=== PATIENT | female | born 1965 | race African-American/Black ===

== ENCOUNTER 2019-05-10 15:51 | Inpatient (IN) | payer MEDICARE ==
[~2019-05-10 15:51] MED LIST: Gadobenate Dimeglumine 529 MG/1 ML (20ML VIAL) ONE
[2019-05-10 17:12] LABS: #Lymphocytes 1.1 thou/uL (1.20-3.40); #Monocytes 0.3 thou/uL (0.11-0.59); %Basophils 0.3 % (0.0-1.0); %Eosinophils 0.8 % (0.0-10.0); %Lymphocytes 24.8 % (21.0-51.0); %Monocytes 7.1 % (0.0-10.0); Hemoglobin 11.3 g/dL (12.0-16.0); Mean Corpuscular HGB CONC 32.7 g/dL (32.0-36.0); Mean Corpuscular Hemoglobin 30.2 pg (27.0-31.0); Mean Corpuscular Volume 92.3 fL (78.0-98.0); Platelet Count 233 thou/uL (130-400); RBC Distribution Width 12.4 % (11.5-14.5); Red Blood Cell (RBC) Count 3.73 mill/uL (4.20-5.40); White Blood Cell (WBC) Count 4.4 thou/uL (4.8-10.8)
--- NOTE | 2019-05-10 17:12 | CT ---
CT LUMBAR SPINE: 05/10/19 HISTORY: Low back pain, right leg pain, sciatic pain. FINDINGS: The lumbar vertebrae maintain height. There is a grade I anterolisthesis at L4-5. There is loss of di sc space with degenerative disc changes including vacuum phenomenon at L5-S1. Degenerative osteophyt es are seen at L5 and S1 levels. No evidence of spondylolysis although prominent facet hypertrophy at L4-5 and L5-S1. Findings at each level are described. At L1-2, no disc bulge or protrusion. No central canal or foraminal stenosis. At L2-3, mild disc bulge. Mild facet hypertrophy. No central canal or foraminal stenosis. At L3-4, mild diffuse disc bulge. Moderate facet hypertrophy. Mild central canal stenosis. At L4-5, grade I anterolisthesis as noted above. Broad based disc bulge. Prominent facet hypertrophy with facet arthrosis. These changes result in severe central canal stenosis at this level. Bilateral foraminal stenosis. At L5-S1, mild diffuse disc bulge. There is mild central canal stenosis. There is a diffuse disc bulg e impinges on both traversing S1 nerve roots. Bilateral foraminal stenosis is noted. IMPRESSION: 1. Severe central canal and foraminal stenosis at L4-5 as described. 2. Bilateral foraminal stenosis at L5-S1 as described. POS: T[facility]
[2019-05-10] MEDS ORDERED: Morphine 4 MG/ML VIAL ONE ×2 (17:19→18:42)
[2019-05-10 17:36] LABS: ALT (SGPT) 27 U/L (8-55); AST (SGOT) 27 U/L (5-34); Albumin 3.8 g/dL (3.5-5.0); Alkaline Phosphatase 67 U/L (40-110); Anion Gap 11 mmol/L (10-20); BUN (Urea Nitrogen) 13 mg/dL (9.8-20.1); Bilirubin, Total 0.5 mg/dL (0.2-1.2); Calc. Creatinine Clearance 0 mL/min (70-130); Carbon Dioxide 22 mmol/L (22-29); Chloride 107 mmol/L (98-107); Estimated GFR-MDRD 90; Globulin 4.1 g/dL (2.4-3.5); Glucose 95 mg/dL (70-105); Protein, Total 7.9 g/dL (6.0-8.3); Sodium 136 mmol/L (136-145)
[2019-05-10] MEDS ORDERED: Lorazepam 2 MG/ML VIAL ONE (19:50)
[2019-05-10 20:51] LABS: Bilirubin Negative (Negative); Blood, Urine Negative (Negative); Clarity Clear (Clear); Glucose, Urine (Dipstick) Normal (Negative); Leukocyte Negative Leu/uL (Negative); Nitrite Negative (Negative); Protein, Urine (Dipstick) Negative (Neg-Trace); Urobilinogen Normal mg/dL (Less than 2)
--- NOTE | 2019-05-10 21:57 | MRI ---
MRI LUMBAR SPINE WITH AND WITHOUT IV CONTRAST: 05/10/19 HISTORY: Low back pain and right leg pain. COMPARISON: CT lumbar spine on 05/10/19. There is significant motion artifact on all pulses sequences which does degrade image quality. The conus medullaris is grossly normal in appearance and terminates at the level of the L1 vertebral body. As noted on the CT of the lumbar spine, there are degenerative changes in the lower lumbar spine with grade I anterolisthesis of L4 on L5. L1-2 level: No significant central canal or neural foraminal narrowing. L2-3 level: No significant central canal or neural foraminal narrowing. L3-4 level: Minimal disc bulge with facet hypertrophic changes. This results in mild right sided neur al foraminal narrowing. The left neural foramen is patent. There is no significant central canal ruel rowing. L4-5 level: Grade I anterolisthesis is present as noted above. There is a broad based disc osteophyte complex at this level with prominent facet hypertrophic changes. As noted on the CT scan examination , there is severe central canal narrowing with moderate to severe right sided neural foraminal narrow ing and mild left sided neural foraminal narrowing. L5-S1 level: There is severe loss of intervertebral disc height. End plate degenerative changes are p resent. There is disc osteophyte complex and facet hypertrophic changes noted. There is no significan t central canal narrowing at this level. There is moderate right and mild left sided neural foraminal narrowing. Paravertebral soft tissues are within normal limits. There is minimal enhancement adjacent to the facet joints at the L4-5 level likely related to inflamm atory changes due to prominent fact hypertrophic changes. No additional areas of abnormal enhancement are seen after the administration of intravenous contrast. IMPRESSION: 1. Grade I anterolisthesis of L4 on L5 with severe central canal narrowing as well as severe rig ht and moderate left sided neural foraminal narrowing. 2. Prominent disc degenerative changes at the L5-S1 level with evidence of bilateral neural fora mandy narrowing. POS: ZABRINA
[2019-05-10] MEDS ORDERED: methylPREDNISolone Sod Succ/PF 125 MG/2 ML VIAL ONE (23:51)
[2019-05-10 23:55] LABS: Magnesium 2.2 mg/dL (1.6-2.6); Phosphorus 3.2 mg/dL (2.3-4.7)
[2019-05-11 01:51] VITALS: BMI 31.3
[2019-05-11] MEDS ORDERED: Acetaminophen 325 MG TAB PO PRN (02:23)
[2019-05-11] MEDS ORDERED: Ondansetron PF 4 MG/2 ML Vial IVP PRN (02:23)
[2019-05-11] MEDS ORDERED: Ondansetron ODT 4 MG TAB PO PRN (02:23)
[2019-05-11] MEDS ORDERED: Calcium Carbonate 500 MG ChewTAB PO PRN (02:23)
[2019-05-11] MEDS ORDERED: Morphine 2 MG/ML SYRINGE SLOW IVP PRN (02:28)
--- NOTE | 2019-05-11 02:45 | HP ---
PRIMARY CARE PHYSICIAN: Tal Urias MD CHIEF COMPLAINT: Low back pain. HISTORY OF PRESENT ILLNESS: The patient is a 53-year-old female, with systemic lupus erythematosus, fibromyalgia, osteoporosis, and degenerative joint disease, presented to the emergency room with above complaints. Over the last 3 days, the patient has worsening low back pain. 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 The pain is radiating to her right leg. She is unable to bear weight due to this reason. She also has significant paresthesias especially over the anterior right leg that started today. She denies any bladder or bowel incontinence. No fever or chills reported. The pain is 10/10, constant, worse with ambulation or any kind of movement. She denies any relieving factor. PAST MEDICAL HISTORY: 1. Systemic lupus erythematosus. 2. Osteoporosis. 3. Fibromyalgia. 4. Degenerative joint disease. 5. Hypertension. PAST SURGICAL HISTORY: 1. Cholecystectomy. 2. Gastric bypass in 2010. ALLERGIES: NO KNOWN DRUG ALLERGIES. CURRENT MEDICATIONS: Per ER note, the patient takes 1. Losartan 50 mg b.i.d. 2. Hydrochlorothiazide 12.5 mg daily. 3. Potassium chloride 20 mEq daily. 4. Prednisone 5 mg every other day. 5. Hydroxychloroquine 400 mg daily. 6. Gabapentin as directed. 7. Methotrexate every week. 8. Tramadol as needed. Medications need to be verified. SOCIAL HISTORY: The patient currently lives at home with her family. No current use of tobacco, alcohol, or drug use. FAMILY HISTORY: Negative for premature coronary artery disease. REVIEW OF SYSTEMS: All other review of systems was reviewed and was found negative. PHYSICAL EXAMINATION: VITAL SIGNS: Temperature 98.2, respirations of 18, pulse rate of 63, blood pressure of 139/94 on admission. Her pulse rate was 110 on admission. O2 saturation 99% on room air. GENERAL: A 53-year-old female, in mild distress due to back pain. HEENT: Head, atraumatic and normocephalic. Sclerae are anicteric. Moist mucous membranes. No oral lesion. NECK: Supple. No JVD appreciated. No carotid bruit. LUNGS: Clear to auscultation bilaterally. No wheezing, rales, or rhonchi. HEART: S1 and S2 present. Regular rate and rhythm. No rubs or gallops appreciated. ABDOMEN: Soft, nontender. Bowel sounds are present. No rebound or guarding. EXTREMITIES: No edema or calf tenderness. NEUROLOGY: Cranial nerves 2 through 12 are normal on examination. Power is 5/5 in bilateral upper extremities. The power is 4/5 in the right lower extremities. Sensation is diminished over the anterior right leg. There is pain on palpation over the right SI joint. Leg raising on the right elicited the back pain. PSYCHIATRY: Alert, awake, oriented x3. SKIN: Warm and dry. LYMPH NODES: No palpable lymph nodes in the neck. PERIPHERAL VASCULAR: Radial pulses palpable bilaterally. MUSCULOSKELETAL: No joint swelling or tenderness. LABORATORY FINDINGS: CBC showed WBC of 4.4 with hemoglobin 11.3, hematocrit 34.4, platelet of 233. Chemistry showed sodium 136, potassium 4, chloride 107, bicarb 22, BUN 13, creatinine 0.8. LFTs in normal range. MRI of the lumbar spine by my review showed grade 1 anterolisthesis of L4 on L5 with severe central canal narrowing as well as severe right and moderate left-sided neural foraminal narrowing. There were prominent degenerative changes at L5-S1. IMPRESSION: 1. Intractable low back pain with radiculopathy. 2. Systemic lupus erythematosus, on chronic steroids and methotrexate. 3. Fibromyalgia. 4. Hypertension. 5. Osteoporosis. 6. Obesity with a BMI of 31.3. 7. Normochromic normocytic anemia. 8. Chronic kidney disease, stage 2. PLAN: The patient will be monitored on the medical floor. Neurosurgery has been consulted. We will consult Physical Therapy. We will consult Inpatient Rehabilitation. She denies any bladder or bowel incontinence. We will control pain with tramadol as needed for now. We will consider adding IV narcotics if needed. We will resume gabapentin and other home medications once the dosages are confirmed. We will also add muscle relaxant. Plan of care was discussed with the patient in detail and she stated understanding. Job ID: [id number]
[2019-05-11] MEDS: traMADol HCl 50 MG TAB PO PRN (06:44)
[2019-05-11] MEDS ORDERED: predniSONE 5 MG TAB PO SCH ×3 (07:00→09:00)
[2019-05-11] MEDS: Gabapentin 300 MG CAP PO SCH (08:14)
[2019-05-11] MEDS: Famotidine 20 MG TAB PO SCH ×2 (08:14→21:21)
[2019-05-11] MEDS: Hydroxychloroquine Sulfate 200 MG TAB PO SCH (08:18)
[2019-05-11] MEDS: Cyclobenzaprine 10 MG TAB PO SCH ×3 (08:18→21:21)
[2019-05-11] MEDS: Multivit, Therapeutic 1 TAB PO SCH (08:18)
[2019-05-11] MEDS: Folic Acid 1 MG TAB PO SCH (08:19)
[2019-05-11] MEDS: Senokot S 8.6-50 MG TAB PO SCH ×2 (08:19→21:21)
[2019-05-11] MEDS ORDERED: Non-Formulary Item 1 EACH (Multivitamin [Multivitamins] 1 CAP) PO SCH (09:00)
[2019-05-11] MEDS ORDERED: Losartan 25 MG TAB PO SCH ×2 (09:00→21:30)
[2019-05-11] MEDS ORDERED: GABAPENTIN PO SCH (09:00)
[2019-05-11] MEDS ORDERED: FLU VACC QS2019-20(6MOS UP)/PF 60 MCG/0.5 ML SYRINGE IM ONE (09:00)
[2019-05-11] MEDS ORDERED: LOSARTAN POTASSIUM PO SCH (09:00)
[2019-05-11] MEDS: traMADol HCl 50 MG TAB PO SCH ×4 (10:06→21:18)
--- NOTE | 2019-05-11 10:12 | CON ---
DATE OF CONSULTATION: 05/11/2019 This is Jagruti Rivers PA-C dictating a report for Zeke Marroquin MD. HISTORY OF PRESENT ILLNESS: The patient is a 53-year-old female with a past medical history of lupus and fibromyalgia, chronic back pain, who presented to the emergency department per EMS for progressive back and right leg pain and weakness. The patient reports she has a history of chronic back pain and has seen Pain Management, Dr. Cain, in the past, trying injections as well as physical therapy without significant relief. She is managed primarily by her samples and repairs preparer with tramadol and gabapentin. She also takes methotrexate and prednisone for her chronic lupus. She reports that over the past week she has had significant increase in back pain with radiation into the right hip with dysesthesias down the right leg. No inciting event. Her pain is significantly worsening when she is standing, walking, or sitting up straight. She does get some relief when she lies flat in the bed. She denies any bowel or bladder incontinence. She was seen in the ER with MRI of the lumbar spine, which shows L4-L5 spondylolisthesis with severe concentric stenosis at this level. She was admitted to the [facility] [place] [facility] for further evaluation and management of this complaint and possible need for inpatient rehabilitation. PAST MEDICAL HISTORY: Lupus, osteoporosis, fibromyalgia, degenerative joint disease, and hypertension. PAST SURGICAL HISTORY: Cholecystectomy, gastric bypass. ALLERGIES: SHE HAS NO KNOWN DRUG ALLERGIES. REVIEW OF SYSTEMS: Per HPI. SOCIAL HISTORY: She lives at home with her family. She does not smoke, drink, or use any drugs. PHYSICAL EXAMINATION: VITAL SIGNS: The patient's temperature is 98, pulse is 71, respirations 18, she is 99% on room air, and blood pressure is 117/74. CONSTITUTIONAL: Awake, alert, in no acute distress. HEENT: Head, normocephalic and atraumatic. Eyes, PERRLA. Extraocular movements intact. ENT; oral mucosa is pink, intact, and moist. She has normal voice. NECK: Nontender to palpation. No meningismus or nuchal rigidity. CARDIAC: Regular rate and rhythm. LUNGS: Symmetric chest expansion. No evidence of dyspnea. MUSCULOSKELETAL: She has good range of motion of all extremities. She does seem somewhat weak throughout the right leg, 4+/5, but this may be limited by effort/pain. She is hyperreflexive throughout. Negative Hutchison's. Negative clonus. NEURO: A and O x4. Some decreased right lower extremity strength per musculoskeletal exam. ASSESSMENT AND PLAN: This is a 53-year-old female with progressive back pain, right leg pain, and claudicatory symptoms in the right leg, was found to have significant L4-L5 spondylolisthesis and concentric stenosis. She has been admitted by the [facility] [place] [facility] and they have restarted pain medications and the patient is feeling much better at this time. She still has pain when she gets out of bed or tries to ambulate. We have asked Physical therapy to see her and a rehab screen have also been placed. I have discussed the case with Dr. Marroquin and he will also review. Job ID: [id number] [facility]
--- NOTE | 2019-05-11 11:31 | PDOC.HOSPP ---
- Subjective Encounter Date: 05/11/19 Encounter Time: 08:40 Subjective: Patient seen and examined. No overnight events pt has severe back pain, unable to walk - Objective Vital Signs & Weight: Vital Signs (12 hours) Temp Pulse Resp BP BP Pulse Ox 05/11/19 07:31 98 F 71 18 117/74 99 05/11/19 04:51 98.0 F 69 20 107/70 97 05/11/19 02:23 99 05/11/19 01:00 98.1 F 68 16 143/93 H 100 Weight Weight 188 lb 4.8 oz I&O: 05/10/19 05/11/19 05/12/19 06:59 06:59 06:59 Intake Total 700 Balance 700 Result Diagrams: 05/10/19 17:02 05/10/19 17:02 Hospitalist ROS - Medication Medications: Active Medications Generic Name Dose Route Start Last Admin Trade Name Freq PRN Reason Stop Dose Admin Cyclobenzaprine HCl 10 mg 05/11/19 09:00 05/11/19 08:18 Flexeril PO 05/12/19 09:01 10 mg TID JACKIE Administration Famotidine 20 mg 05/11/19 09:00 05/11/19 08:14 Pepcid PO 20 mg BID JACKIE Administration Folic Acid 1 mg 05/11/19 09:00 05/11/19 08:19 Folvite PO 1 mg DAILY JACKIE Administration Gabapentin 1,800 mg 05/11/19 09:00 05/11/19 08:14 Neurontin PO 600 mg DAILY JACKIE Administration Hydroxychloroquine Sulfate 400 mg 05/11/19 09:00 05/11/19 08:18 Plaquenil PO 200 mg DAILY JACKIE Administration Losartan Potassium 100 mg 05/11/19 09:00 05/11/19 08:17 Cozaar PO 50 mg BID JACKIE Administration Multivitamins 1 tab 05/11/19 09:00 05/11/19 08:18 Theragran PO 1 tab DAILY JACKIE Administration Prednisone 5 mg 05/11/19 09:00 05/11/19 08:20 Prednisone PO Not Given Q2D JACKIE Senna/Docusate Sodium 2 tab 05/11/19 09:00 05/11/19 08:19 Senokot S PO 2 tab BID JACKIE Administration Tramadol HCl 50 mg 05/11/19 02:18 05/11/19 06:44 Ultram PO 50 mg Q4H PRN Administration Moderate Pain (4-6) Tramadol HCl 50 mg 05/11/19 09:00 05/11/19 10:06 Ultram PO 50 mg QID JACKIE Administration - Exam General Appearance: NAD, awake alert Eye: PERRL, anicteric sclera ENT: normocephalic atraumatic, no oropharyngeal lesions Neck: supple, symmetric, no JVD, no thyromegaly Heart: RRR, no murmur, no gallops, no rubs Respiratory: CTAB, no wheezes, no rales, no ronchi Gastrointestinal: soft, non-tender, non-distended, normal bowel sounds Extremities: no cyanosis, no clubbing, no edema Skin: normal turgor, no lesions, no rashes Neurological: cranial nerve grossly intact, no focal deficits Musculoskeletal: normal tone, normal strength Psychiatric: normal affect, normal behavior Hosp A/P (1) Acute exacerbation of chronic low back pain Code(s): M54.5 - LOW BACK PAIN; G89.29 - OTHER CHRONIC PAIN Status: Acute (2) Lumbar stenosis with neurogenic claudication Code(s): M48.062 - SPINAL STENOSIS, LUMBAR REGION WITH NEUROGENIC CLAUDICATION Status: Acute (3) Obesity (BMI 30.0-34.9) Code(s): E66.9 - OBESITY, UNSPECIFIED Status: Acute (4) Hypertension Code(s): I10 - ESSENTIAL (PRIMARY) HYPERTENSION Status: Chronic (5) Anemia, normocytic normochromic Code(s): D64.9 - ANEMIA, UNSPECIFIED Status: Chronic - Plan old records reviewed/req, PT/OT, psychiatric social worker 05/11/19 continue pain control will need rehab if no surgery as pt lives alone and she can not walk and her pain is not controlled medication reviewed as above symptomatic treatment neurosurgery consulted
[2019-05-11 13:28] LABS: PTT 28.1 SEC (22.9-36.1); Prothrombin Time 12.9 SEC (12.0-14.7)
--- NOTE | 2019-05-11 14:16 | PRG ---
DATE OF SERVICE: 05/11/2019 SUBJECTIVE: The patient was seen and examined, I agree with Jagruti Rivers's evaluation on 05/11/2019. The patient is a 53-year-old woman with lupus and fibromyalgia, who presented with increasing back and right leg pain in a dysesthetic pattern. She has a history of lumbar spinal disease, having undergone epidural steroid injections by Dr. Cain in the past. Her MRI scan reveals profound lumbar stenosis at L4-L5 with spondylolisthesis. IMPRESSION AND PLAN: I have recommended surgery given the extent and the severity of the problem and the failure of conservative measures in the past. She is at elevated risk for surgery given the chronic steroid use, lupus, and fibromyalgia and history of osteoporosis. We discussed the indications, risks, benefits, and alternatives of the L4-L5 decompression and fusion and I do not recommend instrumentation given the history of osteoporosis. She expressed understanding. All questions were answered. She wished to proceed. We will plan to proceed on Tuesday. Hold steroids and any anticoagulants. We will check coags. Job ID: [id number]
[2019-05-11] MEDS: Morphine 4 MG/ML VIAL SLOW IVP PRN ×2 (18:36→23:21)
[2019-05-12] MEDS: Morphine 4 MG/ML VIAL SLOW IVP PRN (05:24)
[2019-05-12] MEDS: Cyclobenzaprine 10 MG TAB PO SCH ×3 (08:16→21:09)
[2019-05-12] MEDS: traMADol HCl 50 MG TAB PO SCH ×4 (08:17→21:11)
[2019-05-12] MEDS: Hydroxychloroquine Sulfate 200 MG TAB PO SCH ×3 (08:18→21:10)
[2019-05-12] MEDS: Gabapentin 300 MG CAP PO SCH ×4 (08:18→21:09)
[2019-05-12] MEDS: Losartan 25 MG TAB PO SCH ×2 (08:19→21:14)
[2019-05-12] MEDS: Multivit, Therapeutic 1 TAB PO SCH (08:19)
[2019-05-12] MEDS: Senokot S 8.6-50 MG TAB PO SCH ×2 (08:19→21:09)
[2019-05-12] MEDS: Famotidine 20 MG TAB PO SCH ×2 (08:20→21:09)
[2019-05-12] MEDS: Folic Acid 1 MG TAB PO SCH (08:20)
[2019-05-12] MEDS ORDERED: predniSONE 5 MG TAB PO SCH (09:00)
[2019-05-12] MEDS ORDERED: METHOTREXATE SODIUM IV SCH (09:45)
[2019-05-12] MEDS ORDERED: METHOTREXATE SODIUM SC SCH (10:00)
--- NOTE | 2019-05-12 10:03 | PDOC.HOSPP ---
- Subjective Encounter Date: 05/12/19 Encounter Time: 08:30 Subjective: Patient seen and examined. has back pain. No overnight events - Objective Vital Signs & Weight: Vital Signs (12 hours) Temp Pulse Resp BP BP Pulse Ox 05/12/19 07:37 98 F 74 19 142/85 H 98 05/12/19 04:00 98.2 F 68 20 129/83 95 05/11/19 23:30 98.0 F 74 16 126/84 97 Weight Weight 188 lb 4.8 oz I&O: 05/11/19 05/12/19 05/13/19 06:59 06:59 06:59 Intake Total 700 Balance 700 Result Diagrams: 05/10/19 17:02 05/10/19 17:02 Hospitalist ROS - Review of Systems Constitutional: denies: fever, chills, sweats, weakness, malaise, other Eyes: denies: pain, vision change, conjunctivae inflammation, eyelid inflammation, redness, other ENT: denies: ear pain, ear discharge, nose pain, nose discharge, nose congestion , mouth pain, mouth swelling, throat pain, throat swelling, other Respiratory: denies: cough, dry, shortness of breath, hemoptysis, SOB with excertion, pleuritic pain, sputum, wheezing, other Cardiovascular: denies: chest pain, palpitations, orthopnea, paroxysmal noc. dyspnea, edema, light headedness, other Gastrointestinal: denies: nausea, vomiting, abdominal pain, diarrhea, constipation, melena, hematochezia, other Genitourinary: denies: dysuria, frequency, incontinence, hematuria, retention, other Musculoskeletal: reports: back pain. denies: neck pain, shoulder pain, arm pain , hand pain, leg pain, foot pain, other Skin: denies: rash, lesions, andrew, bruising, other - Medication Medications: Active Medications Generic Name Dose Route Start Last Admin Trade Name Freq PRN Reason Stop Dose Admin Famotidine 20 mg 05/11/19 09:00 05/12/19 08:20 Pepcid PO 20 mg BID JACKIE Administration Folic Acid 1 mg 05/11/19 09:00 05/12/19 08:20 Folvite PO 1 mg DAILY JACKIE Administration Losartan Potassium 50 mg 05/12/19 09:00 05/12/19 08:19 Cozaar PO 50 mg BID JACKIE Administration Morphine Sulfate 4 mg 05/11/19 17:55 05/12/19 05:24 Morphine SLOW IVP 4 mg Q4H PRN Administration Pain Multivitamins 1 tab 05/11/19 09:00 05/12/19 08:19 Theragran PO 1 tab DAILY JACKIE Administration Senna/Docusate Sodium 2 tab 05/11/19 09:00 05/12/19 08:19 Senokot S PO 2 tab BID JACKIE Administration Tramadol HCl 50 mg 05/11/19 02:18 05/11/19 06:44 Ultram PO 50 mg Q4H PRN Administration Moderate Pain (4-6) Tramadol HCl 50 mg 05/11/19 09:00 05/12/19 08:17 Ultram PO 50 mg QID JACKIE Administration - Exam General Appearance: NAD, awake alert Eye: PERRL, anicteric sclera ENT: normocephalic atraumatic, no oropharyngeal lesions Neck: supple, symmetric, no JVD, no thyromegaly Heart: RRR, no murmur, no gallops, no rubs Respiratory: CTAB, no wheezes, no rales, no ronchi Gastrointestinal: soft, non-tender, non-distended, no palpable masses, no hepatomegaly, no splenomegaly Extremities: no cyanosis, no clubbing, no edema Skin: normal turgor, no lesions Neurological: cranial nerve grossly intact, no focal deficits Musculoskeletal: normal tone, normal strength Psychiatric: normal affect, normal behavior Hosp A/P (1) Acute exacerbation of chronic low back pain Code(s): M54.5 - LOW BACK PAIN; G89.29 - OTHER CHRONIC PAIN Status: Acute (2) Lumbar stenosis with neurogenic claudication Code(s): M48.062 - SPINAL STENOSIS, LUMBAR REGION WITH NEUROGENIC CLAUDICATION Status: Acute (3) Obesity (BMI 30.0-34.9) Code(s): E66.9 - OBESITY, UNSPECIFIED Status: Acute (4) Hypertension Code(s): I10 - ESSENTIAL (PRIMARY) HYPERTENSION Status: Chronic (5) Anemia, normocytic normochromic Code(s): D64.9 - ANEMIA, UNSPECIFIED Status: Chronic - Plan old records reviewed/req 05/11/19 continue pain control will need rehab if no surgery as pt lives alone and she can not walk and her pain is not controlled medication reviewed as above symptomatic treatment neurosurgery consulted 05/12/19 Her home medication reconciled pain control with morphin and toradol as needed surgery on tuesday discharge planning to rehab/snu medication reviewed as above symptomatic treatment
[2019-05-12] MEDS: Hydrochlorothiazide 25 MG TAB PO SCH (10:09)
--- NOTE | 2019-05-12 10:41 | PRG ---
DATE OF SERVICE: 05/12/2019 The patient is a 53-year-old female, recently evaluated by us for progressive back pain and claudicatory symptoms. She is found to have severe stenosis at L4-L5 with spondylolisthesis at this level. There are plans for surgery with L4-L5 decompression and fusion on Tuesday. I have made her n.p.o. at midnight. She has no acute event or neurologic change. All preop orders have been done. Job ID: [id number]
[2019-05-12] MEDS: Potassium Chloride 10 MEQ TAB PO SCH ×2 (12:25→21:09)
[2019-05-12] MEDS: Ketorolac Tromethamine 30 MG/ML VIAL IVP PRN (17:47)
[2019-05-13] MEDS: traMADol HCl 50 MG TAB PO PRN (06:05)
[2019-05-13] MEDS: Gabapentin 300 MG CAP PO SCH ×3 (08:21→20:57)
[2019-05-13] MEDS: Losartan 25 MG TAB PO SCH ×2 (08:22→20:57)
[2019-05-13] MEDS: Cyclobenzaprine 10 MG TAB PO SCH ×3 (08:22→20:57)
[2019-05-13] MEDS: Hydrochlorothiazide 25 MG TAB PO SCH (08:22)
[2019-05-13] MEDS: traMADol HCl 50 MG TAB PO SCH ×4 (08:23→20:58)
[2019-05-13] MEDS: Senokot S 8.6-50 MG TAB PO SCH ×2 (08:24→20:58)
[2019-05-13] MEDS: Hydroxychloroquine Sulfate 200 MG TAB PO SCH ×2 (08:24→20:57)
[2019-05-13] MEDS: Potassium Chloride 10 MEQ TAB PO SCH ×2 (08:25→20:58)
[2019-05-13] MEDS: Folic Acid 1 MG TAB PO SCH (08:25)
[2019-05-13] MEDS: Multivit, Therapeutic 1 TAB PO SCH (08:25)
[2019-05-13] MEDS: Famotidine 20 MG TAB PO SCH ×2 (08:25→20:59)
[2019-05-13] MEDS: Ketorolac Tromethamine 30 MG/ML VIAL IVP PRN ×2 (10:00→16:07)
--- NOTE | 2019-05-13 10:03 | PRG ---
DATE OF SERVICE: 05/13/2019 The patient is a 53-year-old female, recently evaluated for progressive back pain and right leg weakness, who has severe lumbar stenosis at L4-L5 with spondylolisthesis. We are planning for L4-L5 decompression and fusion tomorrow. She has been made n.p.o. at midnight. She has had no acute events, hence remains amenable to this plan. I spoke with Medicine, and she is cleared medically for surgery. Job ID: [id number]
--- NOTE | 2019-05-13 12:38 | PDOC.HOSPP ---
- Subjective Encounter Date: 05/13/19 Encounter Time: 09:00 Subjective: Patient seen and examined. No new complaints. No overnight events - Objective Vital Signs & Weight: Vital Signs (12 hours) Temp Pulse Resp BP Pulse Ox 05/13/19 08:16 98.5 F 87 16 107/68 96 Weight Weight 188 lb 4.8 oz I&O: 05/12/19 05/13/19 05/14/19 06:59 06:59 06:59 Intake Total 700 Balance 700 Result Diagrams: 05/10/19 17:02 05/10/19 17:02 Hospitalist ROS - Review of Systems Constitutional: denies: fever, chills, sweats, weakness, malaise, other Eyes: denies: pain, vision change, conjunctivae inflammation, eyelid inflammation, redness, other ENT: denies: ear pain, ear discharge, nose pain, nose discharge, nose congestion , mouth pain, mouth swelling, throat pain, throat swelling, other Respiratory: denies: cough, dry, shortness of breath, hemoptysis, SOB with excertion, pleuritic pain, sputum, wheezing, other Cardiovascular: denies: chest pain, palpitations, orthopnea, paroxysmal noc. dyspnea, edema, light headedness, other Gastrointestinal: denies: nausea, vomiting, abdominal pain, diarrhea, constipation, melena, hematochezia, other Genitourinary: denies: dysuria, frequency, incontinence, hematuria, retention, other Musculoskeletal: reports: back pain. denies: neck pain, shoulder pain, arm pain , hand pain, leg pain, foot pain, other Skin: denies: rash, lesions, andrew, bruising, other - Medication Medications: Active Medications Generic Name Dose Route Start Last Admin Trade Name Freq PRN Reason Stop Dose Admin Cyclobenzaprine HCl 10 mg 05/12/19 15:00 05/13/19 08:22 Flexeril PO 10 mg TID JACKIE Administration Famotidine 20 mg 05/11/19 09:00 05/13/19 08:25 Pepcid PO 20 mg BID JACKIE Administration Folic Acid 1 mg 05/11/19 09:00 05/13/19 08:25 Folvite PO 1 mg DAILY JACKIE Administration Gabapentin 600 mg 05/12/19 09:00 05/13/19 08:21 Neurontin PO 600 mg TID JACKIE Administration Hydrochlorothiazide 12.5 mg 05/12/19 09:00 05/13/19 08:22 Hydrochlorothiazide PO 12.5 mg DAILY JACKIE Administration Hydroxychloroquine Sulfate 200 mg 05/12/19 09:00 05/13/19 08:24 Plaquenil PO 200 mg BID JACKIE Administration Ketorolac Tromethamine 15 mg 05/11/19 17:56 05/13/19 10:00 Toradol IVP 05/16/19 17:57 15 mg Q6H PRN Administration Pain Losartan Potassium 50 mg 05/12/19 09:00 05/13/19 08:22 Cozaar PO 50 mg BID JACKIE Administration Morphine Sulfate 4 mg 05/11/19 17:55 05/12/19 05:24 Morphine SLOW IVP 4 mg Q4H PRN Administration Pain Multivitamins 1 tab 05/11/19 09:00 05/13/19 08:25 Theragran PO 1 tab DAILY JACKIE Administration Potassium Chloride 10 meq 05/12/19 09:00 05/13/19 08:25 Klor-Con 10 PO 10 meq BID JACKIE Administration Senna/Docusate Sodium 2 tab 05/11/19 09:00 05/13/19 08:24 Senokot S PO 1 tab BID JACKIE Administration Tramadol HCl 50 mg 05/11/19 02:18 05/13/19 06:05 Ultram PO 50 mg Q4H PRN Administration Moderate Pain (4-6) Tramadol HCl 50 mg 05/11/19 09:00 05/13/19 08:23 Ultram PO 50 mg QID JACKIE Administration - Exam General Appearance: NAD, awake alert Eye: PERRL, anicteric sclera ENT: normocephalic atraumatic, no oropharyngeal lesions Neck: supple, symmetric, no JVD, no thyromegaly Heart: RRR, no murmur, no gallops, no rubs Respiratory: CTAB, no wheezes, no rales, no ronchi Gastrointestinal: soft, non-tender, non-distended, normal bowel sounds, no palpable masses, no hepatomegaly, no guarding, no rigidity Extremities: no cyanosis, no clubbing Skin: normal turgor, no lesions Neurological: cranial nerve grossly intact, no focal deficits Hosp A/P (1) Acute exacerbation of chronic low back pain Code(s): M54.5 - LOW BACK PAIN; G89.29 - OTHER CHRONIC PAIN Status: Acute (2) Lumbar stenosis with neurogenic claudication Code(s): M48.062 - SPINAL STENOSIS, LUMBAR REGION WITH NEUROGENIC CLAUDICATION Status: Acute (3) Obesity (BMI 30.0-34.9) Code(s): E66.9 - OBESITY, UNSPECIFIED Status: Acute (4) Hypertension Code(s): I10 - ESSENTIAL (PRIMARY) HYPERTENSION Status: Chronic (5) Anemia, normocytic normochromic Code(s): D64.9 - ANEMIA, UNSPECIFIED Status: Chronic - Plan old records reviewed/req, PT/OT, 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 05/11/19 continue pain control will need rehab if no surgery as pt lives alone and she can not walk and her pain is not controlled medication reviewed as above symptomatic treatment neurosurgery consulted 05/12/19 Her home medication reconciled pain control with morphin and toradol as needed surgery on tuesday discharge planning to rehab/snu medication reviewed as above symptomatic treatment 04/2719 pt is medically cleared for surgery, pt does not have any angina, dyspnea and vitals stable tomorrow surgery then will evaluate for any need for placement medication reviewed as above symptomatic treatment
[2019-05-13] MEDS: Morphine 4 MG/ML VIAL SLOW IVP PRN (19:18)
[2019-05-14] MEDS: Morphine 4 MG/ML VIAL SLOW IVP PRN ×3 (03:39→18:36)
[2019-05-14] MEDS: Famotidine 20 MG TAB PO SCH ×2 (07:27→20:43)
[2019-05-14] MEDS: Cyclobenzaprine 10 MG TAB PO SCH ×3 (07:27→20:42)
[2019-05-14] MEDS: Folic Acid 1 MG TAB PO SCH (07:27)
[2019-05-14] MEDS: Hydrochlorothiazide 25 MG TAB PO SCH (07:28)
[2019-05-14] MEDS: Multivit, Therapeutic 1 TAB PO SCH (07:28)
[2019-05-14] MEDS: Potassium Chloride 10 MEQ TAB PO SCH ×2 (07:28→20:44)
[2019-05-14] MEDS: Losartan 25 MG TAB PO SCH ×2 (07:28→20:43)
[2019-05-14] MEDS: Gabapentin 300 MG CAP PO SCH ×3 (07:28→20:43)
[2019-05-14] MEDS: Hydroxychloroquine Sulfate 200 MG TAB PO SCH ×2 (07:28→20:43)
[2019-05-14] MEDS: Senokot S 8.6-50 MG TAB PO SCH ×2 (07:28→20:44)
[2019-05-14] MEDS: traMADol HCl 50 MG TAB PO SCH ×2 (07:28→12:23)
--- NOTE | 2019-05-14 11:18 | PDOC.HOSPP ---
- Subjective Encounter Date: 05/14/19 Encounter Time: 09:00 Subjective: Patient seen and examined. No new complaints. No overnight events - Objective Vital Signs & Weight: Vital Signs (12 hours) Temp Pulse Resp BP BP Pulse Ox 05/14/19 08:00 100 05/14/19 07:55 98.1 F 83 18 124/74 100 05/14/19 04:00 98.2 F 84 20 100/60 98 05/14/19 02:41 98 05/14/19 00:00 98.0 F 112 H 20 107/73 98 Weight Weight 188 lb 4.8 oz I&O: 05/13/19 05/14/19 05/15/19 06:59 06:59 06:59 Intake Total 1999 Balance 1999 Result Diagrams: 05/10/19 17:02 05/10/19 17:02 Hospitalist ROS - Review of Systems Eyes: denies: pain, vision change, conjunctivae inflammation, eyelid inflammation, redness, other ENT: denies: ear pain, ear discharge, nose pain, nose discharge, nose congestion , mouth pain, mouth swelling, throat pain, throat swelling, other Respiratory: denies: cough, dry, shortness of breath, hemoptysis, SOB with excertion, pleuritic pain, sputum, wheezing, other Cardiovascular: denies: chest pain, palpitations, orthopnea, paroxysmal noc. dyspnea, edema, light headedness, other Gastrointestinal: denies: nausea, vomiting, abdominal pain, diarrhea, constipation, melena, hematochezia, other Genitourinary: denies: dysuria, frequency, incontinence, hematuria, retention, other Musculoskeletal: reports: back pain. denies: neck pain, shoulder pain, arm pain , hand pain, leg pain, foot pain, other Skin: denies: rash, lesions, andrew, bruising, other Neurological: reports: numbness. denies: weakness, incoordination, change in speech, confusion, seizures, other - Medication Medications: Active Medications Generic Name Dose Route Start Last Admin Trade Name Freq PRN Reason Stop Dose Admin Cyclobenzaprine HCl 10 mg 05/12/19 15:00 05/14/19 07:27 Flexeril PO Not Given TID [facility] Famotidine 20 mg 05/11/19 09:00 05/14/19 07:27 Pepcid PO Not Given BID JACKIE Folic Acid 1 mg 05/11/19 09:00 05/14/19 07:27 Folvite PO Not Given DAILY [facility] Gabapentin 600 mg 05/12/19 09:00 05/14/19 07:28 Neurontin PO Not Given TID [facility] Hydrochlorothiazide 12.5 mg 05/12/19 09:00 05/14/19 07:28 Hydrochlorothiazide PO Not Given DAILY [facility] Hydroxychloroquine Sulfate 200 mg 05/12/19 09:00 05/14/19 07:28 Plaquenil PO Not Given BID [facility] Ketorolac Tromethamine 15 mg 05/11/19 17:56 05/13/19 16:07 Toradol IVP 05/16/19 17:57 15 mg Q6H PRN Administration Pain Losartan Potassium 50 mg 05/12/19 09:00 05/14/19 07:28 Cozaar PO Not Given BID [facility] Morphine Sulfate 4 mg 05/11/19 17:55 05/14/19 08:21 Morphine SLOW IVP 4 mg Q4H PRN Administration Pain Multivitamins 1 tab 05/11/19 09:00 05/14/19 07:28 Theragran PO Not Given DAILY [facility] Potassium Chloride 10 meq 05/12/19 09:00 05/14/19 07:28 Klor-Con 10 PO Not Given BID [facility] Senna/Docusate Sodium 2 tab 05/11/19 09:00 05/14/19 07:28 Senokot S PO Not Given BID [facility] Tramadol HCl 50 mg 05/11/19 02:18 05/13/19 06:05 Ultram PO 50 mg Q4H PRN Administration Moderate Pain (4-6) Tramadol HCl 50 mg 05/11/19 09:00 05/14/19 07:28 Ultram PO Not Given QID [facility] - Exam General Appearance: NAD, awake alert Eye: PERRL, anicteric sclera ENT: normocephalic atraumatic, no oropharyngeal lesions Neck: supple, symmetric, no JVD, no thyromegaly Heart: RRR, no murmur, no gallops, no rubs, normal peripheral pulses Respiratory: CTAB, no wheezes, no rales, no ronchi, normal chest expansion Gastrointestinal: soft, non-tender, non-distended, normal bowel sounds Extremities: no cyanosis, no clubbing, no edema Skin: normal turgor, no lesions, no rashes Neurological: cranial nerve grossly intact, no focal deficits Musculoskeletal: normal tone, normal strength Psychiatric: normal affect, normal behavior Hosp A/P (1) Acute exacerbation of chronic low back pain Code(s): M54.5 - LOW BACK PAIN; G89.29 - OTHER CHRONIC PAIN Status: Acute (2) Lumbar stenosis with neurogenic claudication Code(s): M48.062 - SPINAL STENOSIS, LUMBAR REGION WITH NEUROGENIC CLAUDICATION Status: Acute (3) Obesity (BMI 30.0-34.9) Code(s): E66.9 - OBESITY, UNSPECIFIED Status: Acute (4) Hypertension Code(s): I10 - ESSENTIAL (PRIMARY) HYPERTENSION Status: Chronic (5) Anemia, normocytic normochromic Code(s): D64.9 - ANEMIA, UNSPECIFIED Status: Chronic - Plan old records reviewed/req 05/11/19 continue pain control will need rehab if no surgery as pt lives alone and she can not walk and her pain is not controlled medication reviewed as above symptomatic treatment neurosurgery consulted 05/12/19 Her home medication reconciled pain control with morphin and toradol as needed surgery on tuesday discharge planning to rehab/snu medication reviewed as above symptomatic treatment 05/13/19 pt is medically cleared for surgery, pt does not have any angina, dyspnea and vitals stable tomorrow surgery then will evaluate for any need for placement medication reviewed as above symptomatic treatment 05/14/19 continue current medical therapy pt is scheduled for surgery later on today
[2019-05-14] MEDS ORDERED: Fentanyl 100 MCG/2 ML VIAL ONE ×5 (12:40→16:53)
[2019-05-14] MEDS ORDERED: CEFAZOLIN 2 GM in Premix Bag 1 BAG IVPB SCH (12:45)
[2019-05-14] MEDS ORDERED: tiZANidine HCl 4 MG TAB PO PRN ×2 (14:02→15:16)
--- NOTE | 2019-05-14 15:12 | OP ---
DATE OF PROCEDURE: 05/14/2019 PROCESSING SPECIALIST: Jhoan Zambrano PA-C PROCEDURES PERFORMED: L4-L5 laminectomy, posterolateral arthrodesis, demineralized bone matrix, local morselized autograft, and BMP. DESCRIPTION OF PROCEDURE: The patient was brought to the operating room and intubated. She was rolled in prone position on gel-filled chest rolls. An incision was made exposing L4-L5 and the level was confirmed by x-ray. The surgery was quite difficult given her very large body habitus. We performed complete L5 and inferior L4 laminectomies and completely decompressed the L4-L5 interspace. We prepared the posterolateral surfaces for the purpose of arthrodesis and then, made a combination of BMP soaked on Gelfoam combined with cancellous bone chips in the lateral surfaces of the purpose of arthrodesis. MAC hemostasis was secured. A drain was left in place. Vancomycin powder was applied and the wound was closed in anatomic layers. Job ID: [id number]
[2019-05-14] MEDS ORDERED: diphenhydrAMINE 25 MG CAP PO PRN (15:16)
[2019-05-14] MEDS ORDERED: Acetaminophen 325 MG TAB PO PRN (15:16)
[2019-05-14] MEDS ORDERED: diphenhydrAMINE 50 MG/ML VIAL IVP PRN (15:16)
[2019-05-14] MEDS ORDERED: Acetaminophen 650 MG Suppository PR PRN (15:16)
[2019-05-14] MEDS ORDERED: HYDROcodone/Acetaminophen 7.5/325 mg Tablet PO PRN (15:16)
[2019-05-14] MEDS ORDERED: Morphine 2 MG/ML SYRINGE SLOW IVP PRN (15:18)
[2019-05-14] MEDS ORDERED: Ondansetron PF 4 MG/2 ML Vial IM PRN (15:18)
[2019-05-14] MEDS ORDERED: PROPOFOL 200 MG/20 ML VIAL ONE (15:43)
[2019-05-14] MEDS ORDERED: Lidocaine 1% PF 5 ML VIAL ONE (15:43)
[2019-05-14] MEDS ORDERED: Rocuronium Bromide 10 MG/ML (10ML VIAL) ONE (15:43)
[2019-05-14] MEDS ORDERED: Dexamethasone 20 MG/5 ML VIAL ONE (15:43)
[2019-05-14] MEDS ORDERED: HYDROmorphone 0.5 MG/0.5 ML SYRINGE ONE (15:49)
[2019-05-14] MEDS ORDERED: Ondansetron PF 4 MG/2 ML Vial ONE (17:07)
[2019-05-14] MEDS ORDERED: Ondansetron HCl/PF 4 MG/2 ML Vial IVP PRN (17:28)
[2019-05-14] MEDS ORDERED: Promethazine HCl 25 MG/ML VIAL IM PRN (17:28)
[2019-05-14] MEDS ORDERED: Promethazine HCl 25 MG/ML VIAL SLOW IVP PRN (17:28)
[2019-05-14] MEDS: CEFAZOLIN 2 GM in Premix Bag 1 BAG IVPB SCH (20:42)
[2019-05-14] MEDS: traMADol HCl 50 MG TAB PO PRN (20:47)
[2019-05-15] MEDS: Ketorolac Tromethamine 30 MG/ML VIAL IVP PRN (03:21)
[2019-05-15] MEDS: Tamsulosin HCl 0.4 MG CAP PO SCH (06:25)
[2019-05-15] MEDS: traMADol HCl 50 MG TAB PO PRN ×2 (06:26→23:28)
[2019-05-15] MEDS: CEFAZOLIN 2 GM in Premix Bag 1 BAG IVPB SCH (08:22)
[2019-05-15] MEDS: Hydroxychloroquine Sulfate 200 MG TAB PO SCH ×2 (08:30→20:03)
[2019-05-15] MEDS: Cyclobenzaprine 10 MG TAB PO SCH ×3 (08:30→20:03)
[2019-05-15] MEDS: Gabapentin 300 MG CAP PO SCH ×3 (08:31→20:03)
[2019-05-15] MEDS: Folic Acid 1 MG TAB PO SCH (08:31)
[2019-05-15] MEDS: Famotidine 20 MG TAB PO SCH ×2 (08:31→20:03)
[2019-05-15] MEDS: Potassium Chloride 10 MEQ TAB PO SCH ×2 (08:31→20:04)
[2019-05-15] MEDS: Hydrochlorothiazide 25 MG TAB PO SCH (08:31)
[2019-05-15] MEDS: Multivit, Therapeutic 1 TAB PO SCH (08:31)
[2019-05-15] MEDS: Senokot S 8.6-50 MG TAB PO SCH ×2 (08:31→20:04)
[2019-05-15] MEDS: Losartan 25 MG TAB PO SCH ×2 (08:31→20:04)
[2019-05-15] MEDS: Morphine 4 MG/ML VIAL SLOW IVP PRN ×4 (08:32→14:20)
--- NOTE | 2019-05-15 09:30 | PRG ---
DATE OF SERVICE: 05/15/2019 The patient is postoperative day #1, status post L4-L5 decompression and fusion. 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 BMP was used during the procedure. She had BLANCA drain placed intraoperatively, which had 10 mL out overnight. She is sitting up in no acute distress during my visit. She continues to have some diffuse weakness in the right leg. Negative SLR. Incision C/D/I We will plan to remove the BLANCA drain today. We will get her working with Physical Therapy and Occupational Therapy today and plan to begin working on a rehab plan. Job ID: [id number] MTDD
--- NOTE | 2019-05-15 10:33 | EKG ---
Test Reason : Blood Pressure : / mmHG Vent. Rate : 092 BPM Atrial Rate : 092 BPM P-R Int : 150 ms QRS Dur : 080 ms QT Int : 344 ms P-R-T Axes : 069 012 123 degrees QTc Int : 425 ms Sinus rhythm with occasional Premature ventricular complexes Minimal voltage criteria for LVH, may be normal variant T wave abnormality, consider lateral ischemia Abnormal ECG No previous ECGs available Confirmed by VINITA SERRA, HITESH ([id number]) on 05/15/2019 10:33:20 AM Referred By: Confirmed By:HITESH TALAMANTES MD
--- NOTE | 2019-05-15 11:50 | PDOC.HOSPP ---
- Subjective Encounter Date: 05/15/19 Encounter Time: 10:00 Subjective: Patient seen and examined. No overnight events pt has some shooting pain in right leg anterior aspect but overall feels better - Objective Vital Signs & Weight: Vital Signs (12 hours) Temp Pulse Resp BP BP Pulse Ox 05/15/19 11:31 98.1 F 83 18 109/73 98 05/15/19 08:32 99 05/15/19 07:38 98.5 F 98 18 137/73 99 05/15/19 04:00 98.5 F 78 20 96/59 L 98 05/15/19 00:00 99.0 F 106 H 20 99/66 93 L Weight Weight 188 lb 4.8 oz I&O: 05/14/19 05/15/19 05/16/19 06:59 06:59 06:59 Intake Total 1999 1900 Output Total 1410 10 Balance 1999 490 -10 Result Diagrams: 05/10/19 17:02 05/10/19 17:02 Hospitalist ROS - Review of Systems Constitutional: denies: fever, chills, sweats, weakness, malaise, other Eyes: denies: pain, vision change, conjunctivae inflammation, eyelid inflammation, redness, other ENT: denies: ear pain, ear discharge, nose pain, nose discharge, nose congestion , mouth pain, mouth swelling, throat pain, throat swelling, other Respiratory: denies: cough, dry, shortness of breath, hemoptysis, SOB with excertion, pleuritic pain, sputum, wheezing, other Cardiovascular: denies: chest pain, palpitations, orthopnea, paroxysmal noc. dyspnea, edema, light headedness, other Gastrointestinal: denies: nausea, vomiting, abdominal pain, diarrhea, constipation, melena, hematochezia, other Genitourinary: denies: dysuria, frequency, incontinence, hematuria, retention, other Musculoskeletal: reports: back pain. denies: neck pain, shoulder pain, arm pain , hand pain, leg pain, foot pain, other Skin: denies: rash, lesions, andrew, bruising, other - Medication Medications: Active Medications Generic Name Dose Route Start Last Admin Trade Name Freq PRN Reason Stop Dose Admin Cyclobenzaprine HCl 10 mg 05/12/19 15:00 05/15/19 08:30 Flexeril PO 10 mg TID JACKIE Administration Famotidine 20 mg 05/11/19 09:00 05/15/19 08:31 Pepcid PO 20 mg BID JACKIE Administration Folic Acid 1 mg 05/11/19 09:00 05/15/19 08:31 Folvite PO 1 mg DAILY JACKIE Administration Gabapentin 600 mg 05/12/19 09:00 05/15/19 08:31 Neurontin PO 600 mg TID JACKIE Administration Hydrochlorothiazide 12.5 mg 05/12/19 09:00 05/15/19 08:31 Hydrochlorothiazide PO 12.5 mg DAILY [facility] Administration Hydroxychloroquine Sulfate 200 mg 05/12/19 09:00 05/15/19 08:30 Plaquenil PO 200 mg BID [facility] Administration Ketorolac Tromethamine 15 mg 05/11/19 17:56 05/15/19 03:21 Toradol IVP 05/16/19 17:57 15 mg Q6H PRN Administration Pain Losartan Potassium 50 mg 05/12/19 09:00 05/15/19 08:31 Cozaar PO 50 mg BID [facility] Administration Morphine Sulfate 4 mg 05/14/19 15:16 05/15/19 10:18 Morphine SLOW IVP 4 mg Q1H PRN Administration SEVERE BREAKTHROUGH PAIN Multivitamins 1 tab 05/11/19 09:00 05/15/19 08:31 Theragran PO 1 tab DAILY [facility] Administration Potassium Chloride 10 meq 05/12/19 09:00 05/15/19 08:31 Klor-Con 10 PO 10 meq BID [facility] Administration Senna/Docusate Sodium 2 tab 05/11/19 09:00 05/15/19 08:31 Senokot S PO 2 tab BID [facility] Administration Tamsulosin HCl 0.4 mg 05/15/19 06:00 05/15/19 06:25 Flomax PO 0.4 mg 0600 [facility] Administration Tramadol HCl 100 mg 05/14/19 15:16 05/15/19 06:26 Ultram PO 100 mg Q6H PRN Administration PAIN (4-6) - Exam General Appearance: NAD, awake alert Eye: PERRL, anicteric sclera ENT: normocephalic atraumatic, no oropharyngeal lesions Neck: supple, symmetric, no JVD, no thyromegaly Heart: RRR, no murmur, no gallops, no rubs Respiratory: CTAB, no wheezes, no rales, no ronchi, normal chest expansion Gastrointestinal: soft, non-tender, non-distended, normal bowel sounds, no palpable masses, no guarding Extremities: no cyanosis, no clubbing, no edema Skin: normal turgor, no lesions Neurological: cranial nerve grossly intact, no focal deficits Musculoskeletal: normal tone, normal strength Psychiatric: normal affect, normal behavior Hosp A/P (1) Acute exacerbation of chronic low back pain Code(s): M54.5 - LOW BACK PAIN; G89.29 - OTHER CHRONIC PAIN Status: Acute (2) Lumbar stenosis with neurogenic claudication Code(s): M48.062 - SPINAL STENOSIS, LUMBAR REGION WITH NEUROGENIC CLAUDICATION Status: Acute (3) Obesity (BMI 30.0-34.9) Code(s): E66.9 - OBESITY, UNSPECIFIED Status: Acute (4) Hypertension Code(s): I10 - ESSENTIAL (PRIMARY) HYPERTENSION Status: Chronic (5) Anemia, normocytic normochromic Code(s): D64.9 - ANEMIA, UNSPECIFIED Status: Chronic (6) S/P lumbar laminectomy Code(s): Z98.890 - OTHER SPECIFIED POSTPROCEDURAL STATES Status: Acute - Plan old records reviewed/req, PT/OT 05/11/19 continue pain control will need rehab if no surgery as pt lives alone and she can not walk and her pain is not controlled medication reviewed as above symptomatic treatment neurosurgery consulted 05/12/19 Her home medication reconciled pain control with morphin and toradol as needed surgery on tuesday discharge planning to rehab/snu medication reviewed as above symptomatic treatment 05/13/19 pt is medically cleared for surgery, pt does not have any angina, dyspnea and vitals stable tomorrow surgery then will evaluate for any need for placement medication reviewed as above symptomatic treatment 05/14/19 continue current medical therapy pt is scheduled for surgery later on today 05/15/19 continue post laminectomy care drain as per surgeon continue PT and decide if she will need SNU or rehab on discharge medication reviewed as above symptomatic treatment
[2019-05-15] MEDS: Cephalexin 250 MG CAP PO SCH ×3 (12:02→23:30)
[2019-05-15] MEDS: HYDROcodone/Acetaminophen 7.5/325 mg Tablet PO PRN (19:57)
[2019-05-16] MEDS: Morphine 4 MG/ML VIAL SLOW IVP PRN (03:41)
[2019-05-16] MEDS: Tamsulosin HCl 0.4 MG CAP PO SCH (05:09)
[2019-05-16] MEDS: Cephalexin 250 MG CAP PO SCH ×4 (05:09→23:30)
[2019-05-16] MEDS: Hydroxychloroquine Sulfate 200 MG TAB PO SCH ×2 (08:01→20:33)
[2019-05-16] MEDS: Losartan 25 MG TAB PO SCH ×2 (08:01→20:33)
[2019-05-16] MEDS: Hydrochlorothiazide 25 MG TAB PO SCH (08:01)
[2019-05-16] MEDS: Cyclobenzaprine 10 MG TAB PO SCH ×3 (08:02→20:33)
[2019-05-16] MEDS: Gabapentin 300 MG CAP PO SCH ×3 (08:02→20:33)
[2019-05-16] MEDS: Folic Acid 1 MG TAB PO SCH (08:03)
[2019-05-16] MEDS: Potassium Chloride 10 MEQ TAB PO SCH ×2 (08:03→20:33)
[2019-05-16] MEDS: Senokot S 8.6-50 MG TAB PO SCH ×2 (08:03→20:33)
[2019-05-16] MEDS: Multivit, Therapeutic 1 TAB PO SCH (08:03)
[2019-05-16] MEDS: Famotidine 20 MG TAB PO SCH ×2 (08:03→20:33)
--- NOTE | 2019-05-16 09:55 | PRG ---
DATE OF SERVICE: 05/16/2019 SUBJECTIVE: The patient is postoperative day #2, status post L4-L5 decompression and fusion. She has been fitted with her LSO brace and she is wearing this appropriately. She reports decreased pain, improved strength, and improved sensation changes in the right leg. She has been working with Physical Therapy and would like to go to [facility] if possible. OBJECTIVE: This morning, she is sitting up comfortably, able to get up out of the bed without any difficulty on her own. She does continue to have some weakness diffusely in the right leg, but this appears to be quite slightly improved today. Her incision is clean, dry, and intact. PLAN: We will continue to mobilize appropriately while she is inpatient. I still believe she would benefit thoroughly from inpatient rehab, and Case Management is assisting with the process. She is ready for rehab at any point in time. Job ID: [id number]
--- NOTE | 2019-05-16 10:26 | PRG ---
DATE OF SERVICE: 05/16/2019 SUBJECTIVE: Ms. Acuna is recovering reasonably well postop day 2. She is gradually increasing her ambulation. Pain control remains an issue. We are working on placement versus rehab. Job ID: [id number]
--- NOTE | 2019-05-16 10:51 | PDOC.HOSPP ---
- Subjective Encounter Date: 05/16/19 Encounter Time: 10:49 Subjective: post L spine surgery, working with PT - Objective Vital Signs & Weight: Vital Signs (12 hours) Temp Pulse Resp BP BP Pulse Ox 05/16/19 07:21 98.9 F 97 18 120/84 96 05/16/19 04:00 98.5 F 84 16 122/80 99 05/16/19 00:00 98 F 91 18 103/66 98 Weight Weight 188 lb 4.8 oz I&O: 05/15/19 05/16/19 05/17/19 06:59 06:59 06:59 Intake Total 1900 2470 Output Total 1410 1460 Balance 490 1010 Result Diagrams: 05/10/19 17:02 05/10/19 17:02 Hospitalist ROS - Medication Medications: Active Medications Generic Name Dose Route Start Last Admin Trade Name Freq PRN Reason Stop Dose Admin Hydrocodone Bitart/Acetaminophen 1 tab 05/14/19 15:16 05/16/19 08:45 [place] 7.5/325 PO 1 tab Q4H PRN Administration Pain (1-3) Hydrocodone Bitart/Acetaminophen 2 tab 05/14/19 15:16 05/15/19 19:57 [place] 7.5/325 PO 2 tab Q4H PRN Administration PAIN (4-6) Cephalexin 500 mg 05/15/19 12:00 05/16/19 05:09 Keflex PO 05/25/19 06:01 500 mg Q6HR JACKIE Administration Cyclobenzaprine HCl 10 mg 05/12/19 15:00 05/16/19 08:02 Flexeril PO 10 mg TID [facility]ACK[facility] Administration Famotidine 20 mg 05/11/19 09:00 05/16/19 08:03 Pepcid PO 20 mg BID JACK[facility] Administration Folic Acid 1 mg 05/11/19 09:00 05/16/19 08:03 Folvite PO 1 mg DAILY [facility] Administration Gabapentin 600 mg 05/12/19 09:00 05/16/19 08:02 Neurontin PO 600 mg TID JACKIE Administration Hydrochlorothiazide 12.5 mg 05/12/19 09:00 05/16/19 08:01 Hydrochlorothiazide PO 12.5 mg DAILY [facility] Administration Hydroxychloroquine Sulfate 200 mg 05/12/19 09:00 05/16/19 08:01 Plaquenil PO 200 mg BID [facility] Administration Ketorolac Tromethamine 15 mg 05/11/19 17:56 05/15/19 03:21 Toradol IVP 05/16/19 17:57 15 mg Q6H PRN Administration Pain Losartan Potassium 50 mg 05/12/19 09:00 05/16/19 08:01 Cozaar PO 50 mg BID JACKIE Administration Morphine Sulfate 4 mg 05/14/19 15:16 05/16/19 03:41 Morphine SLOW IVP 4 mg Q1H PRN Administration SEVERE BREAKTHROUGH PAIN Multivitamins 1 tab 05/11/19 09:00 05/16/19 08:03 Theragran PO 1 tab DAILY [facility] Administration Potassium Chloride 10 meq 05/12/19 09:00 05/16/19 08:03 Klor-Con 10 PO 10 meq BID [facility] Administration Senna/Docusate Sodium 2 tab 05/11/19 09:00 05/16/19 08:03 Senokot S PO 2 tab BID [facility] Administration Tamsulosin HCl 0.4 mg 05/15/19 06:00 05/16/19 05:09 Flomax PO 0.4 mg 0600 [facility] Administration Tramadol HCl 100 mg 05/14/19 15:16 05/15/19 23:28 Ultram PO 100 mg Q6H PRN Administration PAIN (4-6) - Exam Neck: no JVD Heart: RRR, no murmur Respiratory: CTAB Gastrointestinal: soft, non-distended, normal bowel sounds Extremities: no edema Extremities - other findings: in back brace Hosp A/P (1) SLE (systemic lupus erythematosus related syndrome) Code(s): M32.9 - SYSTEMIC LUPUS ERYTHEMATOSUS, UNSPECIFIED Status: Acute (2) Lumbar stenosis with neurogenic claudication Code(s): M48.062 - SPINAL STENOSIS, LUMBAR REGION WITH NEUROGENIC CLAUDICATION Status: Acute (3) Anemia, normocytic normochromic Code(s): D64.9 - ANEMIA, UNSPECIFIED Status: Chronic (4) Hypertension Code(s): I10 - ESSENTIAL (PRIMARY) HYPERTENSION Status: Chronic - Plan cont PT cont home meds cont po analgesia inpt rehab pending
[2019-05-16] MEDS: traMADol HCl 50 MG TAB PO PRN (11:51)
[2019-05-16] MEDS: HYDROcodone/Acetaminophen 7.5/325 mg Tablet PO PRN ×2 (15:05→19:38)
[2019-05-17] MEDS: HYDROcodone/Acetaminophen 7.5/325 mg Tablet PO PRN ×5 (02:46→23:48)
[2019-05-17] MEDS: Tamsulosin HCl 0.4 MG CAP PO SCH (05:21)
[2019-05-17] MEDS: Cephalexin 250 MG CAP PO SCH ×4 (05:21→23:45)
[2019-05-17] MEDS: Hydrochlorothiazide 25 MG TAB PO SCH (08:05)
[2019-05-17] MEDS: Cyclobenzaprine 10 MG TAB PO SCH ×3 (08:05→20:56)
[2019-05-17] MEDS: Potassium Chloride 10 MEQ TAB PO SCH ×2 (08:05→20:55)
[2019-05-17] MEDS: Gabapentin 300 MG CAP PO SCH ×3 (08:06→20:56)
[2019-05-17] MEDS: Hydroxychloroquine Sulfate 200 MG TAB PO SCH ×2 (08:06→20:55)
[2019-05-17] MEDS: Losartan 25 MG TAB PO SCH ×2 (08:06→20:55)
[2019-05-17] MEDS: Famotidine 20 MG TAB PO SCH ×2 (08:07→20:55)
[2019-05-17] MEDS: Multivit, Therapeutic 1 TAB PO SCH (08:07)
[2019-05-17] MEDS: Senokot S 8.6-50 MG TAB PO SCH ×2 (08:07→20:55)
[2019-05-17] MEDS: Folic Acid 1 MG TAB PO SCH (08:07)
--- NOTE | 2019-05-17 09:28 | PRG ---
DATE OF SERVICE: 05/17/2019 SUBJECTIVE: The patient is postoperative day #3, status post L4-L5 decompression and fusion. She continues to have improvement in her right leg strength, sensation, and pain. She has been working with Physical Therapy. Unfortunately, she was denied from rehab, however, we still feel that she would benefit from some inpatient care and . OBJECTIVE: On exam this morning, she is comfortable, in no acute distress. She has free active range of motion in all extremities. She is still somewhat weak throughout the right leg. Sensation is intact to light touch. Incision is clean, dry, and intact. PLAN: We will continue to mobilize appropriately and hoping for placement in a skilled facility in the near future. Job ID: [id number] [facility]
--- NOTE | 2019-05-17 15:02 | PDOC.HOSPP ---
- Subjective Encounter Date: 05/17/19 Encounter Time: 09:20 Subjective: Pt seen for followup re: cauda equina syndrome. Feels better. - Objective Vital Signs & Weight: Vital Signs (12 hours) Temp Pulse Resp BP Pulse Ox 05/17/19 11:44 98.6 F 61 16 101/71 97 05/17/19 08:00 98.4 F 94 20 128/84 100 Weight Weight 188 lb 4.8 oz I&O: 05/16/19 05/17/19 05/18/19 06:59 06:59 06:59 Intake Total 2470 1400 Output Total 1460 Balance 1010 1400 Result Diagrams: 05/10/19 17:02 05/10/19 17:02 Additional Labs: Labs and MARs reviewed by ut Hospitalist ROS - Review of Systems Cardiovascular: denies: chest pain, palpitations, orthopnea, paroxysmal noc. dyspnea, edema, light headedness Gastrointestinal: denies: nausea, vomiting, abdominal pain, diarrhea, constipation, melena, hematochezia - Medication Medications: Active Medications Generic Name Dose Route Start Last Admin Trade Name Freq PRN Reason Stop Dose Admin Hydrocodone Bitart/Acetaminophen 1 tab 05/14/19 15:16 05/16/19 08:45 [place] 7.5/325 PO 1 tab Q4H PRN Administration Pain (1-3) Hydrocodone Bitart/Acetaminophen 2 tab 05/14/19 15:16 05/17/19 12:12 [place] 7.5/325 PO 2 tab Q4H PRN Administration PAIN (4-6) Cephalexin 500 mg 05/15/19 12:00 05/17/19 12:10 Keflex PO 05/25/19 06:01 500 mg Q6HR JACKIE Administration Cyclobenzaprine HCl 10 mg 05/12/19 15:00 05/17/19 08:05 Flexeril PO 10 mg TID JACKIE Administration Famotidine 20 mg 05/11/19 09:00 05/17/19 08:07 Pepcid PO 20 mg BID JACKIE Administration Folic Acid 1 mg 05/11/19 09:00 05/17/19 08:07 Folvite PO 1 mg DAILY JACKIE Administration Gabapentin 600 mg 05/12/19 09:00 05/17/19 08:06 Neurontin PO 600 mg TID JACKIE Administration Hydrochlorothiazide 12.5 mg 05/12/19 09:00 05/17/19 08:05 Hydrochlorothiazide PO 12.5 mg DAILY JACKIE Administration Hydroxychloroquine Sulfate 200 mg 05/12/19 09:00 05/17/19 08:06 Plaquenil PO 200 mg BID JACKIE Administration Losartan Potassium 50 mg 05/12/19 09:00 05/17/19 08:06 Cozaar PO 50 mg BID JACKIE Administration Morphine Sulfate 4 mg 05/14/19 15:16 05/16/19 03:41 Morphine SLOW IVP 4 mg Q1H PRN Administration SEVERE BREAKTHROUGH PAIN Multivitamins 1 tab 05/11/19 09:00 05/17/19 08:07 Theragran PO 1 tab DAILY JACKIE Administration Potassium Chloride 10 meq 05/12/19 09:00 05/17/19 08:05 Klor-Con 10 PO 10 meq BID JACKIE Administration Senna/Docusate Sodium 2 tab 05/11/19 09:00 05/17/19 08:07 Senokot S PO 2 tab BID JACKIE Administration Tamsulosin HCl 0.4 mg 05/15/19 06:00 05/17/19 05:21 Flomax PO 0.4 mg 0600 JACKIE Administration Tramadol HCl 100 mg 05/14/19 15:16 05/16/19 11:51 Ultram PO 100 mg Q6H PRN Administration PAIN (4-6) - Exam General Appearance: NAD Eye: anicteric sclera ENT: moist mucosa Neck: supple Heart: RRR Respiratory: CTAB Gastrointestinal: soft, non-tender Extremities: no clubbing Musculoskeletal: no muscle wasting Psychiatric: normal affect, normal behavior Hosp A/P (1) Hypertension Code(s): I10 - ESSENTIAL (PRIMARY) HYPERTENSION Status: Chronic (2) Obesity (BMI 30.0-34.9) Code(s): E66.9 - OBESITY, UNSPECIFIED Status: Chronic (3) SLE (systemic lupus erythematosus related syndrome) Code(s): M32.9 - SYSTEMIC LUPUS ERYTHEMATOSUS, UNSPECIFIED Status: Chronic (4) Lumbar stenosis with neurogenic claudication Code(s): M48.062 - SPINAL STENOSIS, LUMBAR REGION WITH NEUROGENIC CLAUDICATION Status: Resolved - Plan s/p lumbar laminectomy. Declined for inpt rehab, applied for SNU. HTN controlled.
[2019-05-18] MEDS: HYDROcodone/Acetaminophen 7.5/325 mg Tablet PO PRN ×3 (03:52→17:21)
[2019-05-18] MEDS: Cephalexin 250 MG CAP PO SCH ×4 (05:46→23:12)
[2019-05-18] MEDS: Tamsulosin HCl 0.4 MG CAP PO SCH (05:46)
[2019-05-18] MEDS: Famotidine 20 MG TAB PO SCH ×2 (08:44→20:17)
[2019-05-18] MEDS: Multivit, Therapeutic 1 TAB PO SCH (08:44)
[2019-05-18] MEDS: traMADol HCl 50 MG TAB PO PRN ×2 (08:44→14:32)
[2019-05-18] MEDS: Folic Acid 1 MG TAB PO SCH (08:45)
[2019-05-18] MEDS: Hydroxychloroquine Sulfate 200 MG TAB PO SCH ×2 (08:45→20:18)
[2019-05-18] MEDS: Gabapentin 300 MG CAP PO SCH ×3 (08:45→20:17)
[2019-05-18] MEDS: Losartan 25 MG TAB PO SCH ×2 (08:45→20:18)
[2019-05-18] MEDS: Cyclobenzaprine 10 MG TAB PO SCH ×3 (08:45→20:17)
[2019-05-18] MEDS: Hydrochlorothiazide 25 MG TAB PO SCH (08:45)
[2019-05-18] MEDS: Potassium Chloride 10 MEQ TAB PO SCH ×2 (08:45→20:18)
[2019-05-18] MEDS: Senokot S 8.6-50 MG TAB PO SCH ×2 (08:45→20:18)
--- NOTE | 2019-05-18 09:32 | PRG ---
DATE OF SERVICE: 05/18/2019 SUBJECTIVE: The patient is postoperative day #4, status post L4-L5 decompression and fusion. She has been improving significantly since her surgery and has had significant reduction in her right leg pain, improving normal strength and sensation. OBJECTIVE: On exam this morning, the patient is awake, alert, comfortable, in no acute distress. She has free active range of motion in all extremities. She is just slightly weak in the right leg, diffusely 4-/5. Her incision is clean, dry, and intact. PLAN: The patient is improving significantly with time. We are planning for placement at a SNF for continued rehabilitation and I anticipate that in the near future. She is ready at any time. Job ID: [id number]
--- NOTE | 2019-05-18 14:39 | PDOC.HOSPP ---
- Subjective Encounter Date: 05/18/19 Encounter Time: 10:25 - Objective Vital Signs & Weight: Vital Signs (12 hours) Temp Pulse Resp BP Pulse Ox 05/18/19 08:00 100 05/18/19 07:53 98.7 F 88 20 123/80 100 Weight Weight 188 lb 4.8 oz I&O: 05/17/19 05/18/19 05/19/19 06:59 06:59 06:59 Intake Total 1400 960 Balance 1400 960 Result Diagrams: 05/10/19 17:02 05/10/19 17:02 Hospitalist ROS - Medication Medications: Active Medications Generic Name Dose Route Start Last Admin Trade Name Freq PRN Reason Stop Dose Admin Hydrocodone Bitart/Acetaminophen 1 tab 05/14/19 15:16 05/16/19 08:45 [place] 7.5/325 PO 1 tab Q4H PRN Administration Pain (1-3) Hydrocodone Bitart/Acetaminophen 2 tab 05/14/19 15:16 05/18/19 10:52 [place] 7.5/325 PO 2 tab Q4H PRN Administration PAIN (4-6) Cephalexin 500 mg 05/15/19 12:00 05/18/19 12:14 Keflex PO 05/25/19 06:01 500 mg Q6HR JACKIE Administration Cyclobenzaprine HCl 10 mg 05/12/19 15:00 05/18/19 14:32 Flexeril PO 10 mg TID JACKIE Administration Famotidine 20 mg 05/11/19 09:00 05/18/19 08:44 Pepcid PO 20 mg BID JACKIE Administration Folic Acid 1 mg 05/11/19 09:00 05/18/19 08:45 Folvite PO 1 mg DAILY JACKIE Administration Gabapentin 600 mg 05/12/19 09:00 05/18/19 14:32 Neurontin PO 600 mg TID JACKIE Administration Hydrochlorothiazide 12.5 mg 05/12/19 09:00 05/18/19 08:45 Hydrochlorothiazide PO 12.5 mg DAILY JACKIE Administration Hydroxychloroquine Sulfate 200 mg 05/12/19 09:00 05/18/19 08:45 Plaquenil PO 200 mg BID JACKIE Administration Losartan Potassium 50 mg 05/12/19 09:00 05/18/19 08:45 Cozaar PO 50 mg BID JACKIE Administration Morphine Sulfate 4 mg 05/14/19 15:16 05/16/19 03:41 Morphine SLOW IVP 4 mg Q1H PRN Administration SEVERE BREAKTHROUGH PAIN Multivitamins 1 tab 05/11/19 09:00 05/18/19 08:44 Theragran PO 1 tab DAILY JACKIE Administration Potassium Chloride 10 meq 05/12/19 09:00 05/18/19 08:45 Klor-Con 10 PO 10 meq BID JACKIE Administration Senna/Docusate Sodium 2 tab 05/11/19 09:00 05/18/19 08:45 Senokot S PO 2 tab BID JACKIE Administration Tamsulosin HCl 0.4 mg 05/15/19 06:00 05/18/19 05:46 Flomax PO 0.4 mg 0600 JACKIE Administration Tramadol HCl 50 mg 05/14/19 15:16 05/18/19 14:32 Ultram PO 50 mg Q6H PRN Administration PAIN (1-3) Tramadol HCl 100 mg 05/14/19 15:16 05/16/19 11:51 Ultram PO 100 mg Q6H PRN Administration PAIN (4-6) - Exam General Appearance: NAD Neck: supple Heart: RRR Respiratory: CTAB Gastrointestinal: soft Extremities: no edema Neurological: no weakness Psychiatric: normal affect Hosp A/P (1) S/P lumbar laminectomy Code(s): Z98.890 - OTHER SPECIFIED POSTPROCEDURAL STATES Status: Acute (2) Hypertension Code(s): I10 - ESSENTIAL (PRIMARY) HYPERTENSION Status: Chronic (3) Obesity (BMI 30.0-34.9) Code(s): E66.9 - OBESITY, UNSPECIFIED Status: Chronic (4) SLE (systemic lupus erythematosus related syndrome) Code(s): M32.9 - SYSTEMIC LUPUS ERYTHEMATOSUS, UNSPECIFIED Status: Chronic (5) Lumbar stenosis with neurogenic claudication Code(s): M48.062 - SPINAL STENOSIS, LUMBAR REGION WITH NEUROGENIC CLAUDICATION Status: Resolved - Plan old records reviewed/req Continue current therapy. Awaiting SNF placement...
[2019-05-19] MEDS: HYDROcodone/Acetaminophen 7.5/325 mg Tablet PO PRN ×5 (03:37→20:48)
[2019-05-19] MEDS: Cephalexin 250 MG CAP PO SCH ×3 (06:24→16:54)
[2019-05-19] MEDS: Tamsulosin HCl 0.4 MG CAP PO SCH (06:24)
[2019-05-19] MEDS: Gabapentin 300 MG CAP PO SCH ×3 (07:45→20:40)
[2019-05-19] MEDS: Hydroxychloroquine Sulfate 200 MG TAB PO SCH ×2 (07:45→20:41)
[2019-05-19] MEDS: Multivit, Therapeutic 1 TAB PO SCH (07:45)
[2019-05-19] MEDS: Losartan 25 MG TAB PO SCH (07:45)
[2019-05-19] MEDS: Hydrochlorothiazide 25 MG TAB PO SCH (07:46)
[2019-05-19] MEDS: Famotidine 20 MG TAB PO SCH ×2 (07:46→20:40)
[2019-05-19] MEDS: Senokot S 8.6-50 MG TAB PO SCH ×2 (07:46→20:42)
[2019-05-19] MEDS: Folic Acid 1 MG TAB PO SCH (07:46)
[2019-05-19] MEDS: Cyclobenzaprine 10 MG TAB PO SCH ×3 (07:46→20:40)
[2019-05-19] MEDS: Potassium Chloride 10 MEQ TAB PO SCH ×2 (07:46→20:41)
[2019-05-19] MEDS ORDERED: METHOTREXATE SODIUM SC SCH (09:00)
--- NOTE | 2019-05-19 12:26 | PDOC.HOSPP ---
- Subjective Encounter Date: 05/19/19 Encounter Time: 11:40 Subjective: No new complaint. Feels better. - Objective Vital Signs & Weight: Vital Signs (12 hours) Temp Pulse Resp BP Pulse Ox 05/19/19 08:00 98 05/19/19 07:39 98.6 F 86 17 136/76 98 Weight Weight 188 lb 4.8 oz I&O: 05/18/19 05/19/19 05/20/19 06:59 06:59 05:59 Intake Total 960 900 Balance 960 900 Result Diagrams: 05/10/19 17:02 05/10/19 17:02 Hospitalist ROS - Medication Medications: Active Medications Generic Name Dose Route Start Last Admin Trade Name Freq PRN Reason Stop Dose Admin Hydrocodone Bitart/Acetaminophen 1 tab 05/14/19 15:16 05/16/19 08:45 [place] 7.5/325 PO 1 tab Q4H PRN Administration Pain (1-3) Hydrocodone Bitart/Acetaminophen 2 tab 05/14/19 15:16 05/19/19 12:03 [place] 7.5/325 PO 2 tab Q4H PRN Administration PAIN (4-6) Cephalexin 500 mg 05/15/19 12:00 05/19/19 12:03 Keflex PO 05/25/19 06:01 500 mg Q6HR JACKIE Administration Cyclobenzaprine HCl 10 mg 05/12/19 15:00 05/19/19 07:46 Flexeril PO 10 mg TID JACKIE Administration Famotidine 20 mg 05/11/19 09:00 05/19/19 07:46 Pepcid PO 20 mg BID JACKIE Administration Folic Acid 1 mg 05/11/19 09:00 05/19/19 07:46 Folvite PO 1 mg DAILY JACKIE Administration Gabapentin 600 mg 05/12/19 09:00 05/19/19 07:45 Neurontin PO 600 mg TID JACKIE Administration Hydrochlorothiazide 12.5 mg 05/12/19 09:00 05/19/19 07:46 Hydrochlorothiazide PO 12.5 mg DAILY JACKIE Administration Hydroxychloroquine Sulfate 200 mg 05/12/19 09:00 05/19/19 07:45 Plaquenil PO 200 mg BID JACKIE Administration Losartan Potassium 50 mg 05/12/19 09:00 05/19/19 07:45 Cozaar PO 50 mg BID JACKIE Administration Morphine Sulfate 4 mg 05/14/19 15:16 05/16/19 03:41 Morphine SLOW IVP 4 mg Q1H PRN Administration SEVERE BREAKTHROUGH PAIN Multivitamins 1 tab 05/11/19 09:00 05/19/19 07:45 Theragran PO 1 tab DAILY JACKIE Administration Potassium Chloride 10 meq 05/12/19 09:00 05/19/19 07:46 Klor-Con 10 PO 10 meq BID JACKIE Administration Senna/Docusate Sodium 2 tab 05/11/19 09:00 05/19/19 07:46 Senokot S PO 2 tab BID JACKIE Administration Tamsulosin HCl 0.4 mg 05/15/19 06:00 05/19/19 06:24 Flomax PO 0.4 mg 0600 JACKIE Administration Tramadol HCl 50 mg 05/14/19 15:16 05/18/19 14:32 Ultram PO 50 mg Q6H PRN Administration PAIN (1-3) Tramadol HCl 100 mg 05/14/19 15:16 05/16/19 11:51 Ultram PO 100 mg Q6H PRN Administration PAIN (4-6) - Exam General Appearance: NAD Neck: no JVD Heart: RRR Respiratory: CTAB Gastrointestinal: soft Extremities: no edema Neurological: no weakness Psychiatric: normal affect Hosp A/P (1) S/P lumbar laminectomy Code(s): Z98.890 - OTHER SPECIFIED POSTPROCEDURAL STATES Status: Acute (2) Hypertension Code(s): I10 - ESSENTIAL (PRIMARY) HYPERTENSION Status: Chronic (3) Obesity (BMI 30.0-34.9) Code(s): E66.9 - OBESITY, UNSPECIFIED Status: Chronic (4) SLE (systemic lupus erythematosus related syndrome) Code(s): M32.9 - SYSTEMIC LUPUS ERYTHEMATOSUS, UNSPECIFIED Status: Chronic (5) Lumbar stenosis with neurogenic claudication Code(s): M48.062 - SPINAL STENOSIS, LUMBAR REGION WITH NEUROGENIC CLAUDICATION Status: Resolved - Plan Awaiting SNF placement. Continue current therapy..
[2019-05-20] MEDS: HYDROcodone/Acetaminophen 7.5/325 mg Tablet PO PRN ×5 (01:04→20:29)
[2019-05-20] MEDS: Cephalexin 250 MG CAP PO SCH ×4 (01:42→16:59)
[2019-05-20] MEDS: Losartan 25 MG TAB PO SCH ×3 (01:44→20:29)
[2019-05-20] MEDS: Tamsulosin HCl 0.4 MG CAP PO SCH (05:50)
--- NOTE | 2019-05-20 07:23 | PRG ---
DATE OF SERVICE: 05/20/2019 Ms. Acuna continues to recover from her surgery. We are awaiting disposition towards residential facility. This will likely not take place until tomorrow. Once that has been arranged, she can be discharged. Neurologically and from pain perspective, she continues to improve and has been stable. Job ID: [id number]
[2019-05-20] MEDS: Hydroxychloroquine Sulfate 200 MG TAB PO SCH ×2 (08:39→20:29)
[2019-05-20] MEDS: Famotidine 20 MG TAB PO SCH ×2 (08:39→20:29)
[2019-05-20] MEDS: Gabapentin 300 MG CAP PO SCH ×3 (08:39→20:29)
[2019-05-20] MEDS: Folic Acid 1 MG TAB PO SCH (08:39)
[2019-05-20] MEDS: Cyclobenzaprine 10 MG TAB PO SCH ×3 (08:39→20:29)
[2019-05-20] MEDS: Multivit, Therapeutic 1 TAB PO SCH (08:40)
[2019-05-20] MEDS: Potassium Chloride 10 MEQ TAB PO SCH ×2 (08:40→20:28)
[2019-05-20] MEDS: Senokot S 8.6-50 MG TAB PO SCH ×2 (09:16→20:34)
[2019-05-20] MEDS: Hydrochlorothiazide 25 MG TAB PO SCH (09:19)
--- NOTE | 2019-05-20 10:04 | PDOC.HOSPP ---
- Subjective Encounter Date: 05/20/19 Encounter Time: 09:00 Subjective: No complaint.. - Objective Vital Signs & Weight: Vital Signs (12 hours) Temp Pulse Resp BP Pulse Ox 05/20/19 07:17 97.8 F 78 17 110/74 99 Weight Weight 188 lb 4.8 oz I&O: 05/19/19 05/20/19 05/21/19 07:59 06:59 06:59 Intake Total 1800 Balance 1800 Result Diagrams: 05/10/19 17:02 05/10/19 17:02 Hospitalist ROS - Medication Medications: Active Medications Generic Name Dose Route Start Last Admin Trade Name Freq PRN Reason Stop Dose Admin Hydrocodone Bitart/Acetaminophen 1 tab 05/14/19 15:16 05/16/19 08:45 [place] 7.5/325 PO 1 tab Q4H PRN Administration Pain (1-3) Hydrocodone Bitart/Acetaminophen 2 tab 05/14/19 15:16 05/20/19 08:40 [place] 7.5/325 PO 2 tab Q4H PRN Administration PAIN (4-6) Cephalexin 500 mg 05/15/19 12:00 05/20/19 05:50 Keflex PO 05/25/19 06:01 500 mg Q6HR JACKIE Administration Cyclobenzaprine HCl 10 mg 05/12/19 15:00 05/20/19 08:39 Flexeril PO 10 mg TID JACKIE Administration Famotidine 20 mg 05/11/19 09:00 05/20/19 08:39 Pepcid PO 20 mg BID JACKIE Administration Folic Acid 1 mg 05/11/19 09:00 05/20/19 08:39 Folvite PO 1 mg DAILY JACKIE Administration Gabapentin 600 mg 05/12/19 09:00 05/20/19 08:39 Neurontin PO 600 mg TID JACKIE Administration Hydrochlorothiazide 12.5 mg 05/12/19 09:00 05/20/19 09:19 Hydrochlorothiazide PO 12.5 mg DAILY JACKIE Administration Hydroxychloroquine Sulfate 200 mg 05/12/19 09:00 05/20/19 08:39 Plaquenil PO 200 mg BID JACKIE Administration Losartan Potassium 50 mg 05/12/19 09:00 05/20/19 08:39 Cozaar PO 50 mg BID JACKIE Administration Morphine Sulfate 4 mg 05/14/19 15:16 05/16/19 03:41 Morphine SLOW IVP 4 mg Q1H PRN Administration SEVERE BREAKTHROUGH PAIN Multivitamins 1 tab 05/11/19 09:00 05/20/19 08:40 Theragran PO 1 tab DAILY JACKIE Administration Potassium Chloride 10 meq 05/12/19 09:00 05/20/19 08:40 Klor-Con 10 PO 10 meq BID JACKIE Administration Senna/Docusate Sodium 2 tab 05/11/19 09:00 05/20/19 09:16 Senokot S PO Not Given BID [facility] Tamsulosin HCl 0.4 mg 05/15/19 06:00 05/20/19 05:50 Flomax PO 0.4 mg 0600 JACKIE Administration Tramadol HCl 50 mg 05/14/19 15:16 05/18/19 14:32 Ultram PO 50 mg Q6H PRN Administration PAIN (1-3) Tramadol HCl 100 mg 05/14/19 15:16 05/16/19 11:51 Ultram PO 100 mg Q6H PRN Administration PAIN (4-6) - Exam General Appearance: NAD Neck: supple, no JVD Heart: RRR Respiratory: CTAB Gastrointestinal: soft Extremities: no edema Neurological: no focal deficits Hosp A/P (1) S/P lumbar laminectomy Code(s): Z98.890 - OTHER SPECIFIED POSTPROCEDURAL STATES Status: Acute (2) Hypertension Code(s): I10 - ESSENTIAL (PRIMARY) HYPERTENSION Status: Chronic (3) Obesity (BMI 30.0-34.9) Code(s): E66.9 - OBESITY, UNSPECIFIED Status: Chronic (4) SLE (systemic lupus erythematosus related syndrome) Code(s): M32.9 - SYSTEMIC LUPUS ERYTHEMATOSUS, UNSPECIFIED Status: Chronic (5) Lumbar stenosis with neurogenic claudication Code(s): M48.062 - SPINAL STENOSIS, LUMBAR REGION WITH NEUROGENIC CLAUDICATION Status: Resolved - Plan Awaiting SNF/rehab placement. Continue current therapy..
[2019-05-20] MEDS: traMADol HCl 50 MG TAB PO PRN (16:14)
[2019-05-21] MEDS: Cephalexin 250 MG CAP PO SCH ×4 (00:20→17:30)
[2019-05-21] MEDS: HYDROcodone/Acetaminophen 7.5/325 mg Tablet PO PRN ×5 (00:21→17:31)
[2019-05-21] MEDS: Tamsulosin HCl 0.4 MG CAP PO SCH (05:23)
[2019-05-21 07:49] VITALS: TEMP 98.3
[2019-05-21] MEDS: Folic Acid 1 MG TAB PO SCH (08:13)
[2019-05-21] MEDS: Losartan 25 MG TAB PO SCH (08:13)
[2019-05-21] MEDS: Famotidine 20 MG TAB PO SCH (08:13)
[2019-05-21] MEDS: Cyclobenzaprine 10 MG TAB PO SCH ×2 (08:13→16:06)
[2019-05-21] MEDS: Multivit, Therapeutic 1 TAB PO SCH (08:14)
[2019-05-21] MEDS: Potassium Chloride 10 MEQ TAB PO SCH (08:14)
[2019-05-21] MEDS: Hydroxychloroquine Sulfate 200 MG TAB PO SCH (08:14)
[2019-05-21] MEDS: Hydrochlorothiazide 25 MG TAB PO SCH (08:14)
[2019-05-21] MEDS: Gabapentin 300 MG CAP PO SCH ×2 (08:14→16:06)
[2019-05-21] MEDS: Senokot S 8.6-50 MG TAB PO SCH (10:27)
--- NOTE | 2019-05-21 12:12 | PDOC.HOSPP ---
- Subjective Encounter Date: 05/21/19 Encounter Time: 12:08 Subjective: pain improved, working with PT - Objective Vital Signs & Weight: Vital Signs (12 hours) Temp Pulse Resp BP Pulse Ox 05/21/19 08:00 95 05/21/19 07:48 98.3 F 87 18 111/75 99 Weight Weight 188 lb 4.8 oz I&O: 05/20/19 05/21/19 05/22/19 06:59 06:59 06:59 Intake Total 5900 Balance 5900 Result Diagrams: 05/10/19 17:02 05/10/19 17:02 Hospitalist ROS - Medication Medications: Active Medications Generic Name Dose Route Start Last Admin Trade Name Freq PRN Reason Stop Dose Admin Hydrocodone Bitart/Acetaminophen 1 tab 05/14/19 15:16 05/16/19 08:45 [place] 7.5/325 PO 1 tab Q4H PRN Administration Pain (1-3) Hydrocodone Bitart/Acetaminophen 2 tab 05/14/19 15:16 05/21/19 08:25 [place] 7.5/325 PO 2 tab Q4H PRN Administration PAIN (4-6) Cephalexin 500 mg 05/15/19 12:00 05/21/19 05:23 Keflex PO 05/25/19 06:01 500 mg Q6HR JACKIE Administration Cyclobenzaprine HCl 10 mg 05/12/19 15:00 05/21/19 08:13 Flexeril PO 10 mg TID JACKIE Administration Famotidine 20 mg 05/11/19 09:00 05/21/19 08:13 Pepcid PO 20 mg BID JACKIE Administration Folic Acid 1 mg 05/11/19 09:00 05/21/19 08:13 Folvite PO 1 mg DAILY JACKIE Administration Gabapentin 600 mg 05/12/19 09:00 05/21/19 08:14 Neurontin PO 600 mg TID JACKIE Administration Hydrochlorothiazide 12.5 mg 05/12/19 09:00 05/21/19 08:14 Hydrochlorothiazide PO 12.5 mg DAILY JACKIE Administration Hydroxychloroquine Sulfate 200 mg 05/12/19 09:00 05/21/19 08:14 Plaquenil PO 200 mg BID JACKIE Administration Losartan Potassium 50 mg 05/12/19 09:00 05/21/19 08:13 Cozaar PO 50 mg BID JACKIE Administration Morphine Sulfate 4 mg 05/14/19 15:16 05/16/19 03:41 Morphine SLOW IVP 4 mg Q1H PRN Administration SEVERE BREAKTHROUGH PAIN Multivitamins 1 tab 05/11/19 09:00 05/21/19 08:14 Theragran PO 1 tab DAILY JACKIE Administration Potassium Chloride 10 meq 05/12/19 09:00 05/21/19 08:14 Klor-Con 10 PO 10 meq BID JACKIE Administration Senna/Docusate Sodium 2 tab 05/11/19 09:00 05/21/19 10:27 Senokot S PO 2 tab BID JACKIE Administration Tamsulosin HCl 0.4 mg 05/15/19 06:00 05/21/19 05:23 Flomax PO 0.4 mg 0600 JACKIE Administration Tramadol HCl 50 mg 05/14/19 15:16 05/18/19 14:32 Ultram PO 50 mg Q6H PRN Administration PAIN (1-3) Tramadol HCl 100 mg 05/14/19 15:16 05/20/19 16:14 Ultram PO 100 mg Q6H PRN Administration PAIN (4-6) - Exam Neck: no JVD Heart: RRR, no murmur Respiratory: CTAB Gastrointestinal: soft, non-tender, normal bowel sounds Extremities: no edema Hosp A/P (1) SLE (systemic lupus erythematosus related syndrome) Code(s): M32.9 - SYSTEMIC LUPUS ERYTHEMATOSUS, UNSPECIFIED Status: Chronic (2) Lumbar stenosis with neurogenic claudication Code(s): M48.062 - SPINAL STENOSIS, LUMBAR REGION WITH NEUROGENIC CLAUDICATION Status: Resolved (3) Anemia, normocytic normochromic Code(s): D64.9 - ANEMIA, UNSPECIFIED Status: Chronic (4) Hypertension Code(s): I10 - ESSENTIAL (PRIMARY) HYPERTENSION Status: Chronic - Plan cont PT cont home meds cont po analgesia inpt rehab pending
--- NOTE | 2019-05-21 12:27 | PRG ---
DATE OF SERVICE: 05/21/2019 The patient continues to heal well status post L4-L5 decompression and fusion. She has continued to be compliant with the LSO brace. The right leg pain and weakness are improving with time. I still feel that she would benefit from assisted facility as she lives at home and continues to work on her mobilization. She is walking with a walker, but I think we will continue to progress with continued rehab. I anticipate an answer from her insurance back today and hopefully will be able to go to [facility] this afternoon. Job ID: [id number]
--- NOTE | 2019-05-21 14:38 | DIS ---
DATE OF ADMISSION: 05/11/2019 DATE OF DISCHARGE: 05/21/2019 PRIMARY CARE PROVIDER: Tal Urias MD DISCHARGE DISPOSITION: Residential Facility, [facility]. FINAL DIAGNOSES: Lumbar stenosis with neurogenic claudication, systemic lupus erythematosus, normocytic/normochromic anemia, hypertension. DISCHARGE MEDICATIONS: 1. Calcium citrate 300 mg p.o. b.i.d. 2. Potassium chloride 10 mEq twice a day. 3. Vitamin D3 5000 units a day. 4. Tramadol 50 mg p.o. q.i.d. 5. Folic acid 1 mg a day. 6. Hydrochlorothiazide 12.5 mg a day. 7. Flomax 0.4 mg a day. 8. Losartan 50 mg twice a day. 9. Plaquenil 200 mg twice a day. 10. Pepcid 20 mg twice a day. 11. Flexeril 10 mg p.o. t.i.d. 12. Tums 1000 mg q.4 hours p.r.n. 13. Acetaminophen 650 mg p.o. q.4 hours p.r.n. ALLERGIES: NO KNOWN DRUG ALLERGIES. PENDING AT TIME OF DISCHARGE: Nothing. CODE STATUS: Full. DIET: Heart healthy. [facility]: [facility]. She had complicating diseases, systemic lupus, fibromyalgia, hypertension, and degenerative joint diseases. Neurosurgery was consulted. The patient was put on physical therapy and analgesics. Admitting laboratory; white count 4.4, hemoglobin 11.3, platelet count 233,000. Comprehensive metabolic profile was unremarkable. A lumbar spine MRI was obtained on 05/10/2019, which revealed grade 1 anterolisthesis of L4 on L5 with severe central canal stenosis; in addition, bilateral L5-S1 neuroforaminal stenosis. On 05/11, Dr. Zeke Marroquin saw the patient. Decision was made to proceed with surgery. On 05/14/2019, she had an L4-L5 laminectomy with posterolateral arthrodesis. The patient has been followed with PT and OT. She has been referred for physical therapy. It was approved today. [facility], etc. Followup will be there per Dr. Urias. She will need follow up eventually with Dr. Zeke Marroquin. Job ID: [id number]
[2019-05-21 16:25] VITALS: BP 139/87
== END 2019-05-21 18:35 | DRG 460 ==
LOC: ERS 15:51 → T4-A 05-11 01:23 → OBSVTOIN 05-11 01:23
PROVIDERS: ADMIT Internal Medicine; ATTEND Internal Medicine
PROC: 0SG0071 Fusion of Lumbar Vertebral Joint with Autologous Tissue Substitute, Posterior Approach, Posterior Column, Open Approach (ICD-10-PCS; principal; 2019-05-14)
PROC: 3E0U0GB Introduction of Recombinant Bone Morphogenetic Protein into Joints, Open Approach (ICD-10-PCS; 2019-05-14)
DX: M48.062 Spinal stenosis, lumbar region with neurogenic claudication (principal); M32.9 Systemic lupus erythematosus, unspecified; M79.7 Fibromyalgia; M81.0 Age-related osteoporosis without current pathological fracture; M54.16 Radiculopathy, lumbar region; E66.9 Obesity, unspecified; I12.9 Hypertensive chronic kidney disease with stage 1 through stage 4 chronic kidney disease, or unspecified chronic kidney disease; D63.1 Anemia in chronic kidney disease; M43.16 Spondylolisthesis, lumbar region; N18.2 Chronic kidney disease, stage 2 (mild); G89.29 Other chronic pain; M48.07 Spinal stenosis, lumbosacral region; Z68.31 Body mass index [BMI] 31.0-31.9, adult; Z98.84 Bariatric surgery status; Z90.49 Acquired absence of other specified parts of digestive tract
CPT/HCPCS: 36415; 72131; 72158; 76000; 80053; 81003; 83735; 84100; 85025; 85610; 85652; 85730; 93005; 93010; 96372; 96374; 96375; A9577; J0690; J1100; J1170; J1885; J2001; J2060; J2270; J2405; J2704; J2930; J3010; J3370

== ENCOUNTER 2019-08-10 11:00 | Outpatient (CLI) | payer MEDICARE | END 2019-08-10 11:01 | disposition home or self-care (01) | LOC: DTY/OP 11:00 | PROVIDERS: ATTEND Family Medicine | DX: I10 Essential (primary) hypertension (principal) | CPT/HCPCS: 97802 ==

== ENCOUNTER 2021-12-04 18:21 | Inpatient (IN) | payer MEDICARE ==
[2021-12-04] MEDS ORDERED: Fentanyl 100 MCG/2 ML VIAL ONE ×3 (18:26→22:57)
[2021-12-04 18:43] LABS: #Basophils 0.1 thou/uL (0.0-0.2); #Lymphocytes 1.6 thou/uL (1.20-3.40); #Monocytes 0.5 thou/uL (0.11-0.59); #Neutrophils 2.7 thou/uL (1.40-6.50); %Basophils 1.1 % (0.0-1.0); %Eosinophils 0.6 % (0.0-10.0); %Lymphocytes 33.6 % (21.0-51.0); %Monocytes 9.5 % (0.0-10.0); %Neutrophils 55.3 % (42.0-75.0); Hemoglobin 10.9 g/dL (12.0-16.0); Mean Corpuscular HGB CONC 33.6 g/dL (32.0-36.0); Mean Corpuscular Hemoglobin 32.9 pg (27.0-31.0); Mean Corpuscular Volume 97.8 fL (78.0-98.0); Mean Platelet Volume 7.1 fL (7.4-10.4); Platelet Count 228 thou/uL (130-400); RBC Distribution Width 12.9 % (11.5-14.5); Red Blood Cell (RBC) Count 3.31 mill/uL (4.20-5.40); White Blood Cell (WBC) Count 4.9 thou/uL (4.8-10.8)
[2021-12-04 18:53] LABS: ALT (SGPT) 18 U/L (8-55); AST (SGOT) 27 U/L (5-34); Albumin 3.5 g/dL (3.5-5.0); Alkaline Phosphatase 61 U/L (40-110); Anion Gap 14 mmol/L (10-20); BUN (Urea Nitrogen) 10 mg/dL (9.8-20.1); Bilirubin, Total 0.5 mg/dL (0.2-1.2); Calc. Creatinine Clearance 0 mL/min (70-130); Calcium 8.6 mg/dL (7.8-10.44); Carbon Dioxide 22 mmol/L (22-29); Chloride 106 mmol/L (98-107); Globulin 3.6 g/dL (2.4-3.5); Glucose 106 mg/dL (70-105); Potassium 4.2 mmol/L (3.5-5.1); Protein, Total 7.1 g/dL (6.0-8.3); Sodium 138 mmol/L (136-145)
[2021-12-04] MEDS ORDERED: Boostrix 0.5 ML (Tdap) VIAL ONE (19:13)
[2021-12-04] MEDS ORDERED: fentaNYL Citrate/PF 100 MCG/2 ML SYRINGE ONE ×3 (19:17→21:47)
[2021-12-04] MEDS ORDERED: Sodium Chloride 0.9% 100 ML ONE (19:48)
[2021-12-04] MEDS ORDERED: CEFAZOLIN 2 GM VIAL ONE (19:48)
[2021-12-04] MEDS ORDERED: Ondansetron PF 4 MG/2 ML Vial ONE (19:56)
[2021-12-04] MEDS ORDERED: Glycopyrrolate 0.2 MG/ML 5 ML SYRINGE ONE (19:56)
[2021-12-04] MEDS ORDERED: Lidocaine 1% PF 5 ML VIAL ONE (19:56)
[2021-12-04] MEDS ORDERED: PROPOFOL 200 MG/20 ML VIAL ONE (19:56)
[2021-12-04] MEDS ORDERED: Ketorolac Tromethamine 30 MG/ML VIAL ONE (19:56)
[2021-12-04] MEDS ORDERED: Rocuronium Bromide 10 MG/ML (10ML VIAL) ONE (19:56)
[2021-12-04] MEDS ORDERED: Succinylcholine 200 MG/10 ml SYRINGE FS ONE (19:56)
[2021-12-04] MEDS ORDERED: Promethazine HCl 25 MG/ML VIAL IM PRN (22:26)
[2021-12-04] MEDS ORDERED: Morphine 2 MG/ML VIAL SLOW IVP PRN (22:26)
[2021-12-04] MEDS ORDERED: traMADol HCl 50 MG TAB PO PRN ×3 (22:26→22:53)
[2021-12-04] MEDS ORDERED: Acetaminophen 325 MG TAB PO PRN (22:26)
[2021-12-04] MEDS ORDERED: Milk Of Magnesia 30 ML UDCUP PO PRN (22:26)
[2021-12-04] MEDS ORDERED: Bisacodyl 10 MG SUPP PR PRN (22:26)
[2021-12-04] MEDS ORDERED: Ondansetron PF 4 MG/2 ML Vial IVP PRN (22:26)
[2021-12-04] MEDS ORDERED: Morphine 4 MG/ML VIAL SLOW IVP PRN (22:26)
[2021-12-04] MEDS ORDERED: HYDROcodone/Acetaminophen 5/325 mg Tablet PO PRN ×2 (22:26)
[2021-12-04] MEDS ORDERED: TETANUS AND DIPHTHERIA TOX/PF 0.5 ML DISP.SYRIN IM SCH (22:30)
[2021-12-04] MEDS ORDERED: Communication Order-Pharmacy FS SCH (22:30)
[2021-12-04] MEDS ORDERED: Meperidine HCl/PF 25 MG/ML VIAL ONE (22:34)
[2021-12-04] MEDS ORDERED: hydrALAZINE 20 MG/ML VIAL SLOW IVP PRN (22:51)
[2021-12-04] MEDS ORDERED: Dextrose 50% Abboject 50 ML SYRINGE SLOW IVP PRN (22:51)
[2021-12-04] MEDS ORDERED: Dextrose 5% in Water 1,000 ML IV PRN (22:51)
[2021-12-04] MEDS ORDERED: Morphine 4 MG/ML VIAL ONE (23:37)
[2021-12-05] MEDS: Acetaminophen 500 MG TAB PO SCH ×4 (00:30→18:24)
[2021-12-05 00:34] LABS: SARS-CoV-2 NAA Rapid Test Not Detected (NotDetected)
[2021-12-05] MEDS: Ketorolac Tromethamine 30 MG/ML VIAL IVP SCH ×4 (00:39→18:25)
[2021-12-05] MEDS: traMADol HCl 50 MG TAB PO PRN ×2 (00:40→09:32)
[2021-12-05] MEDS: Cyclobenzaprine 10 MG TAB PO PRN ×2 (00:41→09:31)
[2021-12-05 00:50] VITALS: BMI 40.1
[2021-12-05] MEDS: Morphine 4 MG/ML VIAL SLOW IVP PRN ×2 (02:47→11:48)
[2021-12-05] MEDS ORDERED: ceFAZolin 2 GM/Dextrose 50 ML 2 GM in Premix Bag 1 BAG IVPB SCH (04:00)
[2021-12-05] MEDS: CEFAZOLIN 2 GM in Sodium Chloride 0.9% 100 ML IVPB SCH ×3 (04:54→21:54)
[2021-12-05 06:09] LABS: #Eosinphils 0.1 thou/uL (0.0-0.7); #Monocytes 0.8 thou/uL (0.11-0.59); #Neutrophils 3.7 thou/uL (1.40-6.50); %Basophils 0.1 % (0.0-1.0); %Eosinophils 0.9 % (0.0-10.0); %Lymphocytes 30.5 % (21.0-51.0); %Monocytes 12.2 % (0.0-10.0); %Neutrophils 56.4 % (42.0-75.0); Hemoglobin 9.2 g/dL (12.0-16.0); Mean Corpuscular HGB CONC 32.5 g/dL (32.0-36.0); Mean Corpuscular Hemoglobin 31.7 pg (27.0-31.0); Mean Corpuscular Volume 97.5 fL (78.0-98.0); Mean Platelet Volume 6.9 fL (7.4-10.4); Platelet Count 190 thou/uL (130-400); RBC Distribution Width 12.6 % (11.5-14.5); White Blood Cell (WBC) Count 6.5 thou/uL (4.8-10.8)
[2021-12-05 06:30] LABS: Anion Gap 13 mmol/L (10-20); BUN (Urea Nitrogen) 12 mg/dL (9.8-20.1); Calc. Creatinine Clearance 115 mL/min (70-130); Carbon Dioxide 25 mmol/L (22-29); Chloride 104 mmol/L (98-107); Glucose 97 mg/dL (70-105); Magnesium 1.5 mg/dL (1.6-2.6); Phosphorus 4.2 mg/dL (2.3-4.7); Potassium 4.1 mmol/L (3.5-5.1); Sodium 138 mmol/L (136-145)
[2021-12-05] MEDS ORDERED: Magnesium Sulfate In Water 4 GM in Premix Bag 1 BAG IVPB SCH (08:30)
[2021-12-05] MEDS ORDERED: Gabapentin 100 MG CAP PO SCH (09:00)
[2021-12-05] MEDS: Aspirin 81 mg Enteric Coated Tablet PO SCH ×2 (09:26→21:01)
[2021-12-05] MEDS: Famotidine 20 MG TAB PO SCH ×2 (09:26→21:03)
[2021-12-05] MEDS: Polyethylene Glycol 3350 17 GM Packet PO SCH (09:27)
[2021-12-05] MEDS: Senokot S 8.6-50 MG TAB PO SCH ×2 (09:27→21:01)
[2021-12-05] MEDS ORDERED: Gabapentin 300 MG CAP PO SCH (15:00)
[2021-12-05] MEDS: Gabapentin 300 MG CAP PO SCH ×2 (15:26→21:01)
[2021-12-05] MEDS: Losartan 25 MG TAB PO SCH (20:58)
[2021-12-05] MEDS: Hydroxychloroquine Sulfate 200 MG TAB PO SCH (21:01)
[2021-12-05] MEDS: Potassium Chloride 10 MEQ TAB PO SCH (21:01)
[2021-12-05] MEDS: Cyanocobalamin (Vitamin B-12) 1,000 MCG TAB PO SCH (21:02)
[2021-12-06] MEDS: Ketorolac Tromethamine 30 MG/ML VIAL IVP SCH (00:07)
[2021-12-06] MEDS: Acetaminophen 500 MG TAB PO SCH ×5 (00:09→22:13)
[2021-12-06] MEDS: Cyclobenzaprine 10 MG TAB PO PRN (04:40)
[2021-12-06] MEDS: CEFAZOLIN 2 GM in Sodium Chloride 0.9% 100 ML IVPB SCH ×3 (04:40→20:18)
[2021-12-06 06:39] LABS: #Eosinphils 0.1 thou/uL (0.0-0.7); #Lymphocytes 1.9 thou/uL (1.20-3.40); #Monocytes 0.7 thou/uL (0.11-0.59); #Neutrophils 3.8 thou/uL (1.40-6.50); %Basophils 0.3 % (0.0-1.0); %Eosinophils 1.7 % (0.0-10.0); %Lymphocytes 29.3 % (21.0-51.0); %Monocytes 11.2 % (0.0-10.0); %Neutrophils 57.6 % (42.0-75.0); Hemoglobin 8.8 g/dL (12.0-16.0); Mean Corpuscular HGB CONC 31.8 g/dL (32.0-36.0); Mean Corpuscular Hemoglobin 31.4 pg (27.0-31.0); Mean Corpuscular Volume 98.7 fL (78.0-98.0); Platelet Count 171 thou/uL (130-400); RBC Distribution Width 12.6 % (11.5-14.5); Red Blood Cell (RBC) Count 2.79 mill/uL (4.20-5.40); White Blood Cell (WBC) Count 6.6 thou/uL (4.8-10.8)
[2021-12-06 06:45] LABS: Anion Gap 13 mmol/L (10-20); BUN (Urea Nitrogen) 17 mg/dL (9.8-20.1); Calc. Creatinine Clearance 88 mL/min (70-130); Carbon Dioxide 24 mmol/L (22-29); Chloride 101 mmol/L (98-107); Glucose 112 mg/dL (70-105); Magnesium 2.7 mg/dL (1.6-2.6); Phosphorus 4.8 mg/dL (2.3-4.7); Potassium 3.7 mmol/L (3.5-5.1); Sodium 134 mmol/L (136-145)
[2021-12-06] MEDS ORDERED: Ferrous Sulfate 325 MG TAB PO SCH (08:00)
[2021-12-06] MEDS: Polyethylene Glycol 3350 17 GM Packet PO SCH (09:31)
[2021-12-06] MEDS: Aspirin 81 mg Enteric Coated Tablet PO SCH ×2 (09:31→20:16)
[2021-12-06] MEDS: traMADol HCl 50 MG TAB PO PRN ×3 (09:32→23:49)
[2021-12-06] MEDS: Senokot S 8.6-50 MG TAB PO SCH ×2 (09:33→20:16)
[2021-12-06] MEDS: Gabapentin 300 MG CAP PO SCH ×3 (09:33→20:16)
[2021-12-06] MEDS: Calcium Carbonate 600 MG + Vit D TAB PO SCH (09:33)
[2021-12-06] MEDS: Famotidine 20 MG TAB PO SCH ×2 (09:34→20:17)
[2021-12-06] MEDS: predniSONE 5 MG TAB PO SCH (09:34)
[2021-12-06] MEDS: Bupropion 150 MG XL TAB PO SCH (09:34)
[2021-12-06] MEDS: Cyanocobalamin (Vitamin B-12) 1,000 MCG TAB PO SCH ×2 (09:36→20:15)
[2021-12-06] MEDS: Cholecalciferol 1,000 UNITS (25 MCG) TAB PO SCH (09:37)
[2021-12-06] MEDS: Folic Acid 1 MG TAB PO SCH (09:37)
[2021-12-06] MEDS: Potassium Chloride 10 MEQ TAB PO SCH ×2 (09:37→20:17)
[2021-12-06] MEDS: Hydroxychloroquine Sulfate 200 MG TAB PO SCH ×2 (09:38→20:17)
[2021-12-06] MEDS: Losartan 25 MG TAB PO SCH ×2 (09:55→20:25)
[2021-12-06] MEDS: Ascorbic Acid 500 mg Chewable Tablet PO SCH ×2 (10:29→20:14)
[2021-12-06] MEDS: Morphine 4 MG/ML VIAL SLOW IVP PRN (12:07)
[2021-12-06] MEDS ORDERED: Sodium Chloride 0.9% 500 ML IV SCH (17:00)
[2021-12-06] MEDS: Ferrous Sulfate 325 MG TAB PO SCH (17:53)
[2021-12-07] MEDS: Morphine 4 MG/ML VIAL SLOW IVP PRN (02:58)
[2021-12-07] MEDS: Acetaminophen 500 MG TAB PO SCH ×4 (04:28→22:58)
[2021-12-07 06:04] LABS: #Eosinphils 0.1 thou/uL (0.0-0.7); #Lymphocytes 1.6 thou/uL (1.20-3.40); #Monocytes 0.7 thou/uL (0.11-0.59); #Neutrophils 3.1 thou/uL (1.40-6.50); %Basophils 0.1 % (0.0-1.0); %Eosinophils 1.9 % (0.0-10.0); %Lymphocytes 29.1 % (21.0-51.0); %Monocytes 13.2 % (0.0-10.0); %Neutrophils 55.7 % (42.0-75.0); Mean Corpuscular Hemoglobin 32.3 pg (27.0-31.0); Mean Platelet Volume 6.8 fL (7.4-10.4); Platelet Count 172 thou/uL (130-400); RBC Distribution Width 12.4 % (11.5-14.5); Red Blood Cell (RBC) Count 2.47 mill/uL (4.20-5.40); White Blood Cell (WBC) Count 5.6 thou/uL (4.8-10.8)
[2021-12-07 06:26] LABS: Anion Gap 10 mmol/L (10-20); BUN (Urea Nitrogen) 12 mg/dL (9.8-20.1); Calc. Creatinine Clearance 140 mL/min (70-130); Calcium 8.3 mg/dL (7.8-10.44); Carbon Dioxide 26 mmol/L (22-29); Chloride 106 mmol/L (98-107); Glucose 103 mg/dL (70-105); Magnesium 2.1 mg/dL (1.6-2.6); Phosphorus 2.9 mg/dL (2.3-4.7); Potassium 3.9 mmol/L (3.5-5.1); Sodium 138 mmol/L (136-145)
[2021-12-07] MEDS: Gabapentin 300 MG CAP PO SCH ×3 (08:47→20:06)
[2021-12-07] MEDS: Potassium Chloride 10 MEQ TAB PO SCH ×2 (08:48→20:04)
[2021-12-07] MEDS: Senokot S 8.6-50 MG TAB PO SCH ×2 (08:48→20:05)
[2021-12-07] MEDS: Calcium Carbonate 600 MG + Vit D TAB PO SCH (08:48)
[2021-12-07] MEDS: Cyanocobalamin (Vitamin B-12) 1,000 MCG TAB PO SCH ×2 (08:48→20:03)
[2021-12-07] MEDS: Polyethylene Glycol 3350 17 GM Packet PO SCH (08:48)
[2021-12-07] MEDS: Bupropion 150 MG XL TAB PO SCH (08:49)
[2021-12-07] MEDS: Cholecalciferol 1,000 UNITS (25 MCG) TAB PO SCH (08:49)
[2021-12-07] MEDS: Ascorbic Acid 500 mg Chewable Tablet PO SCH ×2 (08:49→20:03)
[2021-12-07] MEDS: Losartan 25 MG TAB PO SCH ×2 (08:49→20:04)
[2021-12-07] MEDS: Aspirin 81 mg Enteric Coated Tablet PO SCH (08:50)
[2021-12-07] MEDS: Folic Acid 1 MG TAB PO SCH (08:50)
[2021-12-07] MEDS: Hydroxychloroquine Sulfate 200 MG TAB PO SCH ×2 (08:50→20:04)
[2021-12-07] MEDS: Ferrous Sulfate 325 MG TAB PO SCH ×2 (08:50→18:06)
[2021-12-07] MEDS ORDERED: Acetaminophen/Codeine 30-300mg Tablet PO PRN (10:36)
[2021-12-07] MEDS: Acetaminophen/Codeine 30-300mg Tablet PO PRN ×3 (10:57→20:06)
[2021-12-07] MEDS: Cyclobenzaprine 10 MG TAB PO PRN (20:05)
[2021-12-07] MEDS: Enoxaparin Sodium 30 MG/0.3 ML SYRINGE SC SCH (20:07)
[2021-12-08] MEDS: Cyclobenzaprine 10 MG TAB PO PRN (04:32)
[2021-12-08] MEDS: traMADol HCl 50 MG TAB PO PRN (04:32)
[2021-12-08 05:45] LABS: Hemoglobin 7.8 g/dL (12.0-16.0); Mean Corpuscular HGB CONC 32.2 g/dL (32.0-36.0); Mean Corpuscular Hemoglobin 31.8 pg (27.0-31.0); Mean Corpuscular Volume 98.7 fL (78.0-98.0); Platelet Count 186 thou/uL (130-400); RBC Distribution Width 12.3 % (11.5-14.5); Red Blood Cell (RBC) Count 2.45 mill/uL (4.20-5.40)
[2021-12-08] MEDS: Acetaminophen 500 MG TAB PO SCH ×2 (05:56→11:03)
[2021-12-08] MEDS: Acetaminophen/Codeine 30-300mg Tablet PO PRN (05:56)
[2021-12-08 06:05] LABS: Eosinophils 2 % (0-10); Lymphocytes 35 % (21-51); MDiff Complete? YES; Monocytes 11 % (0-10); Neutrophil 52 % (42-75)
[2021-12-08] MEDS ORDERED: Ferrous Sulfate 325 MG TAB PO SCH (09:00)
[2021-12-08] MEDS: Potassium Chloride 10 MEQ TAB PO SCH (09:28)
[2021-12-08] MEDS: Cholecalciferol 1,000 UNITS (25 MCG) TAB PO SCH (09:28)
[2021-12-08] MEDS: Ascorbic Acid 500 mg Chewable Tablet PO SCH (09:29)
[2021-12-08] MEDS: Cyanocobalamin (Vitamin B-12) 1,000 MCG TAB PO SCH (09:29)
[2021-12-08] MEDS: Gabapentin 300 MG CAP PO SCH (09:30)
[2021-12-08] MEDS: Folic Acid 1 MG TAB PO SCH (09:30)
[2021-12-08] MEDS: Hydroxychloroquine Sulfate 200 MG TAB PO SCH (09:30)
[2021-12-08] MEDS: Calcium Carbonate 600 MG + Vit D TAB PO SCH (09:30)
[2021-12-08] MEDS: Bupropion 150 MG XL TAB PO SCH (09:31)
[2021-12-08] MEDS: Enoxaparin Sodium 30 MG/0.3 ML SYRINGE SC SCH (09:31)
[2021-12-08] MEDS: Polyethylene Glycol 3350 17 GM Packet PO SCH (09:31)
[2021-12-08] MEDS: Losartan 25 MG TAB PO SCH (09:31)
[2021-12-08] MEDS: predniSONE 5 MG TAB PO SCH (09:32)
[2021-12-08] MEDS: Senokot S 8.6-50 MG TAB PO SCH (09:32)
[2021-12-08] MEDS ORDERED: traMADol HCl 50 MG TAB PO SCH ×2 (10:30→11:00)
[2021-12-08] MEDS: Ferrous Sulfate 325 MG TAB PO SCH (11:28)
[2021-12-08 11:42] VITALS: BP 139/85; TEMP 98.4
== END 2021-12-08 14:55 | disposition home or self-care (01) | DRG 493 ==
LOC: ERS 18:21 → SDC/OP 19:53 → SURG A 22:26
PROVIDERS: ADMIT Orthopaedic Surgery; ATTEND Surgery
PROC: 0HQFXZZ Repair Right Hand Skin, External Approach (ICD-10-PCS; principal; 2021-12-04)
PROC: 0QSG04Z Reposition Right Tibia with Internal Fixation Device, Open Approach (ICD-10-PCS; 2021-12-04)
PROC: 0QSJ04Z Reposition Right Fibula with Internal Fixation Device, Open Approach (ICD-10-PCS; 2021-12-04)
DX: S82.851B Displaced trimalleolar fracture of right lower leg, initial encounter for open fracture type I or II (principal); N17.9 Acute kidney failure, unspecified; M32.9 Systemic lupus erythematosus, unspecified; M81.0 Age-related osteoporosis without current pathological fracture; M79.7 Fibromyalgia; M19.90 Unspecified osteoarthritis, unspecified site; I10 Essential (primary) hypertension; S91.011A Laceration without foreign body, right ankle, initial encounter; W11.XXXA Fall on and from ladder, initial encounter; E83.42 Hypomagnesemia; S61.411A Laceration without foreign body of right hand, initial encounter; Z60.2 Problems related to living alone; Z20.822 Contact with and (suspected) exposure to COVID-19; Z90.49 Acquired absence of other specified parts of digestive tract; Z98.84 Bariatric surgery status; Z98.890 Other specified postprocedural states
CPT/HCPCS: 27818; 36415; 71045; 76000; 80048; 80053; 83735; 84100; 85025; 86850; 86900; 86901; 90471; 90715; 96374; C1713; G0390; J1650; J1885; J2175; J2270; J2405; J2704; J3010; J3475; J3490; J7030; J7512; U0002

== ENCOUNTER 2022-02-15 15:54 | Outpatient (CLI) | payer MEDICARE | END 2022-02-15 15:55 | disposition home or self-care (01) | LOC: BICULT 15:54 | PROVIDERS: ATTEND Family Medicine | DX: S20.02XD Contusion of left breast, subsequent encounter (principal) ==

== ENCOUNTER 2023-01-25 08:04 | Outpatient (CLI) | payer MEDICARE | END 2023-01-25 08:05 | disposition home or self-care (01) | LOC: BICCT 08:04 | PROVIDERS: ATTEND Internal Medicine Critical Care Medicine | DX: J18.1 Lobar pneumonia, unspecified organism (principal); R91.8 Other nonspecific abnormal finding of lung field | CPT/HCPCS: 71250 ==